=== PATIENT | female | born 1990 | race Caucasian/White ===

== ENCOUNTER 2023-08-14 17:02 | Outpatient (OUT) | payer OTHER, SELFPAY ==
--- NOTE | 2023-08-14 17:11 | US_ITS ---
[address] [address] Patient Name: EFRAIN CHURCHILL MRN: [id number] date: 1990 Sex: F Assigned Patient Location: US Current Patient Location: Accession/Order Number: [id number] Exam Date: 08/14/2023 17:16 Report Date: 08/15/2023 07:26 At the request of: ANALIA JOHNSON Procedure: US thyroid EXAMINATION: US thyroid HISTORY: MULTINODULAR GOITER E04.2 COMPARISON: 08/26/2022 TECHNIQUE: Sonographic images of the thyroid gland were obtained. FINDINGS: The right thyroid lobe measures 5.6 x 2.1 x 1.9 cm. Multiple focal nodules. The thyroid isthmus measures 2.3 mm. Single focal nodule The left thyroid lobe measures 4.8 x 1.0 x 1.7 cm. Multiple focal nodules. The 2 most suspicious nodules: Nodule 1: Right mid lobe. 1.7 x 1.4 x 1.6 cm. Mixed solid and cystic, hypoechoic, wide, smooth margins, no calcifications. TR 3 Nodule 2: Left thyroid lobe. 0.8 x 0 0.5 to 0.7 cm. Solid, hypoechoic, wide, smooth margins, no calcifications. TR 4 US/US thyroid IMPRESSION: Stable multinodular goiter TI-RADS: The [employer] TI-RADS committee's white paper recommendations for thyroid lesions classified as TR3 (mildly suspicious) are listed below: > 1.5 cm. Follow-up ultrasound in 1, 3, and 5 years. > 2.5 cm. FNA. J. Am Cornelius Radiol 2017;14:587-595. TI-RADS: The [employer] TI-RADS committee's white paper recommendations for thyroid lesions classified as TR4 (moderately suspicious) are listed below: > 1.0 cm. Follow-up ultrasound in 1, 2, 3, and 5 years. > 1.5 cm. FNA. [employer]. [employer]iol 2017;14:587-595. Electronically authenticated by: DREW REAL Date: 08/15/2023 07:26
== END 2023-08-14 17:03 | disposition home or self-care (01) ==
PROVIDERS: PCP Nurse Practitioner; Visit Provider Otolaryngology
DX: E04.2 Nontoxic multinodular goiter (principal)
CPT/HCPCS: 76536

== ENCOUNTER 2023-08-26 19:59 | Outpatient (REF) | payer OTHER, SELFPAY ==
[2023-08-31 16:07] LABS: Age Gdln ACOG Testing Note (.); HPV Aptima Negative (Negative); IGP, Aptima HPV, rfx 16/18,45 Note (.)
== END 2023-08-26 20:00 | disposition home or self-care (01) ==
LOC: LAB 19:59
PROVIDERS: PCP Nurse Practitioner; Visit Provider Physician Assistant
DX: Z01.419 Encounter for gynecological examination (general) (routine) without abnormal findings (principal)
CPT/HCPCS: 87624; G0145

== ENCOUNTER 2023-08-30 09:31 | Outpatient (OUT) | payer OTHER, SELFPAY ==
[2023-08-30 10:22] LABS: Basophils Percent Auto 0.7 % (0.2-2.0); Eosinophils Absolute Auto 0.3 10^3/uL (0.0-0.7); Hematocrit 39.2 % (36.0-48.0); Hemoglobin 13.1 g/dL (12.0-16.0); Immature Granulocytes Abs Auto 0.02 10^3/uL (0.00-0.03); Immature Granulocytes Pct Auto 0.4 % (0.0-0.5); Lymphocytes Absolute Auto 1.7 10^3/uL (1.2-3.8); Lymphocytes Percent Auto 31.1 % (20.5-60.0); Mean Corpuscular HGB Conc 33.4 g/dL (29.9-35.2); Mean Corpuscular Volume 92.9 fL (81.0-99.0); Mean Platelet Volume 9.4 fL (9.5-13.5); Monocytes Absolute Auto 0.4 10^3/uL (0.3-0.8); Monocytes Percent Auto 6.5 % (1.7-12.0); Neutrophils Absolute Auto 3.1 10^3/uL (1.4-6.5); Neutrophils Percent Auto 56.3 % (43.0-75.0); Platelet Count 239 10^3/uL (150-450); Red Blood Count 4.22 10^6/uL (4.20-5.40); White Blood Count 5.6 10^3/uL (4.0-11.0)
[2023-08-30 10:44] LABS: Estimated Average Glucose 82 mg/dL; Glycohemoglobin A1C 4.5 % (4.5-6.2)
[2023-08-30 11:02] LABS: Alanine Aminotransferase 24 U/L (14-59); Albumin Globulin Ratio 1.1; Albumin Level 3.8 g/dL (3.4-5.0); Alkaline Phosphatase 43 U/L (46-116); Anion Gap 13.5; Aspartate Amino Transferase 16 U/L (15-37); BUN Creatinine Ratio 19.2; Bilirubin Total 0.6 mg/dL (0.2-1.0); Calcium 9.2 mg/dL (8.5-10.1); Carbon Dioxide 24.7 mmol/L (21.0-32.0); Chloride 104 mmol/L (98-107); Chol HDL Ratio 2.5; Cholesterol 170 mg/dL (<=200); Estimated GFR (African America >60 (>=60); Estimated GFR (Non-African Ame >60 (>=60); Globulin 3.6 g/dL; Glucose 82 mg/dL (74-106); HDL Cholesterol 69 mg/dL (40-60); Potassium 4.2 mmol/L (3.5-5.1); Sodium 138 mmol/L (136-145); Thyroid Stimulating Hormone 0.912 uIU/mL (0.358-3.740); Total Protein 7.4 g/dL (6.4-8.2); Triglycerides 51 mg/dL (<=150); VLDL CHOLESTEROL 10.2 mg/dL
== END 2023-08-30 09:32 | disposition home or self-care (01) ==
LOC: LAB 09:32
PROVIDERS: PCP Nurse Practitioner; Visit Provider Physician Assistant
DX: Z01.419 Encounter for gynecological examination (general) (routine) without abnormal findings (principal)
CPT/HCPCS: 36415; 80053; 80061; 83036; 84443; 85025

== ENCOUNTER 2024-08-11 16:18 | Outpatient (OUT) | payer OTHER, SELFPAY ==
--- NOTE | 2024-08-11 16:20 | US_ITS ---
The [address] [address] Patient Name: EFRAIN CHURCHILL MRN: [id number] date: 1990 Sex: F Assigned Patient Location: US Current Patient Location: Accession/Order Number: [id number] Exam Date: 08/11/2024 16:26 Report Date: 08/12/2024 08:13 At the request of: ANALIA JOHNSON Procedure: US thyroid EXAMINATION: US thyroid HISTORY: MULTINODULAR GOITER E04.2 COMPARISON: 08/14/2023 TECHNIQUE: Sonographic images of the thyroid gland were obtained. FINDINGS: The right thyroid lobe is heterogeneous in echotexture measuring 5.7 x 2.0 x 2.3 cm. Multiple nodules with a single nodule over 1 cm. The thyroid isthmus measures 1.7 mm. Single subcentimeter nodule The left thyroid lobe is heterogeneous in echotexture measuring 4.6 x 1.1 x 1.6 cm. Multiple subcentimeter nodules. The most suspicious nodule: Right thyroid lobe. 1.9 x 1.6 x 1.7 cm. Mixed solid and cystic, hypoechoic, wide, smooth margins, punctate calcifications. TR 4 US/US thyroid IMPRESSION: Continued increase in size of a now 1.9 cm right thyroid TR 4 nodule. Consider fine-needle aspiration TI-RADS: The [employer] TI-RADS committee's white paper recommendations for thyroid lesions classified as TR4 (moderately suspicious) are listed below: > 1.0 cm. Follow-up ultrasound in 1, 2, 3, and 5 years. > 1.5 cm. FNA. J. [employer] Radiol 2017;14:587-595. Electronically authenticated by: DREW REAL Date: 08/12/2024 08:13
--- OUTSIDE RECORDS SUMMARY | 2024-08-11 16:25 | XMS_ITS | CCD ---
Author Organization [facility] ion [facility] Care Team Providers Care Lab Support Tech Name Role Phone ELIZABETH, DR HELMS Admitting Unavailable ELIZABETH, DR HELMS Attending Unavailable HOUSE, DR CASTILLO Primary Care Unavailable ELIZABETH, DR HELMS Consulting Unavailable Zieber, DR Ann Consulting Unavailable JOHNSONVILLE, DR CASTILLO Admitting Unavailable JOHNSONVILLE, DR CASTILLO Attending Unavailable JOHNSONVILLE, DR CASTILLO Primary Care Unavailable JOHNSONVILLE, DR CASTILLO Consulting Unavailable Allergies Allergy Classification Reported Allergen(s) Allergy Type Date of Onset Reaction(s) Facility (1 source) Penicillin Drug Allergy The [facility] Repository Problems Problem Classification Problem Date Documented Da te Episodic/Chronic Malaise and fatigue (1 source) Other fatigue; Translations: [OTHER FATIGUE] Onset: 10-02-2022 Episodic Syncope (4 sources) Syncope and collapse; Translations: [SYNCOPE AND COLLAPSE] Onset: 09-27-2022 Episodic Thyroid disorders (4 sources) Nontoxic multinodular goiter; Translations: [NONTOXIC MULTINODULAR GOITER] Onset: 08-26-2022 Chronic Results Test Name Value Interpretation Reference Range Facil ity CBC AUTO DIFFon 09-27-2022 BASO # 0.0 103/ul Normal 0.0-0.1 [facility] Comment on above: Performed By: #### C BC #### [facility] [address] [place] [address] Dr. Caden Abdi Basophils/100 WBC (Bld) 0.5 % Normal 0.2-2.0 [facility] Comment on above: Performed By: #### C BC #### [facility] [address] [place] [address] Dr. Caden Abdi EO # 0.2 103/ul Normal 0.0-0.7 [facility] Comment on above: Performed By: #### C BC #### [facility] [address] [place] [address] Dr. Caden Abdi Eosinophils/100 WBC (Bld) 2.7 % Normal 0.9-7.0 [facility] Comment on above: Performed By: #### C BC #### [facility] [address] [place] [address] Dr. Caden Abdi Erythrocyte distribution width (RBC) [Ratio] 12.3 % Normal 11.0-15.0 [facility] Comment on above: Performed By: #### C BC #### [facility] [address] [place] [address] Dr. Caden Abdi Hematocrit (Bld) [Volume fraction] 35.0 % Critically low 36.0-48.0 [facility] Comment on above: Performed By: #### C BC #### [facility] [address] [place] [address] Dr. Caden Abdi Hemoglobin (Bld) [Mass/Vol] 11.8 g/dL Critically low 12.0-16.0 [facility] Comment on above: Performed By: #### C BC #### [facility] [address] [place] [address] Dr. Caden Abdi IG # 0.01 10e3/ul Normal 0.00-0.03 [facility] Comment on above: Performed By: #### C BC #### [facility] [address] [place] [address] Dr. Caden Abdi IG % 0.2 % Normal 0.0-0.5 [facility] Comment on above: Performed By: #### C BC #### [facility] [address] [place] [address] Dr. Caden Abdi LYMPH # 2.2 103/ul Normal 1.2-3.8 [facility] Comment on above: Performed By: #### C BC #### [facility] [address] [place] [address] Dr. Caden Abdi Lymphocytes/100 WBC (Bld) 38.4 % Normal 20.5-60.0 [facility] Comment on above: Performed By: #### C BC #### [facility] [address] [place] [address] Dr. Caden Abdi MANUAL DIFF REQ NO Normal [facility] Comment on above: Performed By: #### C BC #### [facility] [address] [place] [address] Dr. Caden Abdi MCH (RBC) [Entitic mass] 30.3 pg Normal 26.7-34.0 [facility] Comment on above: Performed By: #### C BC #### [facility] [address] [place] [address] Dr. Caden Abdi MCHC (RBC) [Mass/Vol] 33.7 g/dL Normal 29.9-35.2 [facility] Comment on above: Performed By: #### C BC #### [facility] [address] [place] [address] Dr. Caden Abdi MCV (RBC) [Entitic vol] 90.0 fL Normal 81.0-99.0 [facility] Comment on above: Performed By: #### C BC #### [facility] [address] [place] [address] Dr. Caden Abdi MONO # 0.4 103/ul Normal 0.3-0.8 [facility] Comment on above: Performed By: #### C BC #### [facility] [address] [place] [address] Dr. Caden Abdi Monocytes/100 WBC (Bld) 6.2 % Normal 1.7-12.0 [facility] Comment on above: Performed By: #### C BC #### [facility] [address] [place] [address] Dr. Caden Abdi NEUT # 2.9 103/ul Normal 1.4-6.5 [facility] Comment on above: Performed By: #### C BC #### [facility] [address] [place] [address] Dr. Caden Abdi Neutrophils/100 WBC (Bld) 52.0 % Normal 43.0-75.0 [facility] Comment on above: Performed By: #### C BC #### [facility] [address] [place] [address] Dr. Caden Abdi Platelet mean volume (Bld) [Entitic vol] 9.4 fL Critically low 9.5-13.5 [facility] Comment on above: Performed By: #### C BC #### [facility] [address] [place] [address] Dr. Caden Abdi PLT 240 103/ul Normal 150-450 [facility] Comment on above: Performed By: #### C BC #### [facility] [address] [address] [address] Caden Abdi RBC 3.89 106/ul Critically low 4.20-5.40 [facility] Comment on above: Performed By: #### C BC #### [facility] [address] [address] [address] Caden Abdi WBC 5.6 103/ul Normal 4.0-11.0 [facility] Comment on above: Performed By: #### C BC #### [facility] [address] [place] [address] Dr. Caden Abdi PROF 14(COMP METB)on 09-27- 022 Albumin [Mass/Vol] 4.0 g/dL Normal 3.4-5.0 [facility] Comment on above: Performed By: #### T 4, CMP, TSH #### [facility] [address] [place] [address] Dr. Caden Abdi Albumin/Globulin [Mass ratio] 1.3 {ratio} Normal [facility] Comment on above: Performed By: #### T 4, CMP, TSH #### [facility] [address] [place] [address] Dr. Caden Abdi ALP [Catalytic activity/Vol] 38 U/L Critically low 46-116 [facility] Comment on above: Performed By: #### T 4, CMP, TSH #### [facility] [address] [place] [address] Dr. Caden Abdi ALT [Catalytic activity/Vol] 21 U/L Normal 14-59 [facility] Comment on above: Performed By: #### T 4, CMP, TSH #### [facility] [address] [place] [address] Dr. Caden Abdi Anion gap [Moles/Vol] 8.6 mmol/L Normal [facility] Comment on above: Performed By: #### T 4, CMP, TSH #### [facility] [address] [place] [address] Dr. Caden Abdi AST [Catalytic activity/Vol] 13 U/L Critically low 15-37 [facility] Comment on above: Performed By: #### T 4, CMP, TSH #### [facility] [address] [place] [address] Dr. Caden Abdi Bilirubin [Mass/Vol] 0.4 mg/dL Normal 0.2-1.0 [facility] Comment on above: Performed By: #### T 4, CMP, TSH #### [facility] [address] [place] [address] Dr. Caden Abdi Calcium [Mass/Vol] 9.3 mg/dL Normal 8.5-10.1 [facility] Comment on above: Performed By: #### T 4, CMP, TSH #### [facility] [address] [place] [address] Dr. Caden Abdi Chloride [Moles/Vol] 104 mmol/L Normal 98-107 [facility] Comment on above: Performed By: #### T 4, CMP, TSH #### [facility] [address] [place] [address] Dr. Caden Abdi CO2 [Moles/Vol] 30.4 mmol/L Normal 21.0-32.0 [facility] Comment on above: Performed By: #### T 4, CMP, TSH #### [facility] [address] [place] [address] Dr. Caden Abdi Creatinine [Mass/Vol] 0.71 mg/dL Normal 0.55-1.02 [facility] Comment on above: Performed By: #### T 4, CMP, TSH #### [facility] [address] [place] [address] Dr. Caden Abdi EGFR-AF M[place]ICAN >60 Normal >=60 [facility] Comment on above: Performed By: #### T 4, CMP, TSH #### [facility] [address] [place], [place] [address] Dr. Caden Abdi EGFR-NON AF M[place]ICAN >60 Normal >=60 [facility] Comment on above: Performed By: #### T 4, CMP, TSH #### [facility] [address] [place] [address] Dr. Caden Abdi Globulin (S) [Mass/Vol] 3.2 g/dL Normal [facility] Comment on above: Performed By: #### T 4, CMP, TSH #### [facility] [address] [place] [address] Dr. Caden Abdi Glucose [Mass/Vol] 77 mg/dL Normal 74-106 [facility] Comment on above: Performed By: #### T 4, CMP, TSH #### [facility] [address] [place] [address] Dr. Caden Abdi Potassium [Moles/Vol] 4.0 mmol/L Normal 3.5-5.1 [facility] Comment on above: Performed By: #### T 4, CMP, TSH #### [facility] [address] [place] [address] Dr. Caden Abdi Protein [Mass/Vol] 7.2 g/dL Normal 6.4-8.2 [facility] Comment on above: Performed By: #### T 4, CMP, TSH #### [facility] [address] [place] [address] Dr. Caden Abdi Sodium [Moles/Vol] 139 mmol/L Normal 136-145 [facility] Comment on above: Performed By: #### T 4, CMP, TSH #### [facility] [address] [place] [address] Dr. Caden Abdi Urea nitrogen [Mass/Vol] 19.0 mg/dL Critically high 7.0-18.0 [facility] Comment on above: Performed By: #### T 4, CMP, TSH #### [facility] [address] [place] [address] Dr. Caden Abdi Urea nitrogen/Creatinine [Mass ratio] 26.8 mg/mg Normal [facility] Comment on above: Performed By: #### T 4, CMP, TSH #### [facility] [address], [place] [address] Dr. Caden Abdi T4on 09-27-2022 T4 [Mass/Vol] 6.80 ug/dL Normal 4.80-13.90 [facility] Comment on above: Performed By: #### T 4, CMP, TSH #### [facility] [address], [place] [address] Dr. Caden Abdi TSHon 09-27-2022 TSH 1.303 uIU/mL Normal 0.358-3.740 [facility] Comment on above: Performed By: #### T 4, CMP, TSH #### [facility] [address], [place] [address] Dr. Caden Abdi US THYROIDon 08-27-2022 US THYROID EXAMINATION: US THYROID HISTORY: Non-toxic multinodular goiter COMPARISON: Ultrasound thyroid 08/16/2021, 04/24/2021 FINDINGS: RIGHT LOBE: The right thyroid lobe 1.6 x 1.4 x 1.3 cm TR 3 nodule which appears grossly stable allowing for slight differences in technique. Stable 1.0 cm TR 3 nodule within inferior pole. Lobe size: 5.4 x 1.8 x 1.9 cm LEFT LOBE: Several similar appearing TR 4 nodules within left lobe; largest 3 are 8 mm, 8 mm, and 5 mm in maximum diameter respectively. Lobe size: 4.9 x 1.0 x 1.6 cm ISTHMUS: Stable 0.5 cm TR 3 nodule within right isthmus. Thickness: 2.5 mm IMPRESSION: 1. Stable multinodular thyroid gland. Follow-up imaging in one year is recommended. TR4 (moderately suspicious): If > 1.0 cm Follow-up ultrasound in 1, 2, 3, and 5 years. If > 1.5 cm fine needle aspiration (FNA). TR3 (mildly suspicious): > 1.5 cm, follow-up ultrasound in 1, 3, and 5 years. > 2.5 cm, fine needle aspiration. Electronically authenticated by: KEILA DICKINSON Date: 2022-08-27 13:08 Normal [facility] Coding Summary.on 10-17-2020 Coding Summary. CODING DATE: 10/17/2020 FINAL [place] STATUS: Home (Routine DC) PAYOR: [place] ADMIT DX: REASON FOR VISIT DX: Z20.828 Contact with and (suspected) exposure to other viral communicable diseases FINAL DX: PRINCIPAL: Z20.828 Contact with and (suspected) exposure to other viral communicable diseases SECONDARY: PYMT PROC APC STAT DESCRIPTION DOCTOR NAME DATE NOTE: The code number assigned matches the documented diagnosis and / or procedure in the patient's chart. However, the narrative phrase printed from the coding software may appear abbreviated, or result in slightly different terminology. Coded By: Myah Llanos CphT Date Saved: 10/17/2020 05:46 pm Normal [facility] SARS-CoV-2, NAAon 10-06-2020 SARS CORONAVIRUS 2 RNA:PRTHR:PT:RESPIR ATORY:ORD:PROBE.AMP .TAR Not Detected Not Detected [facility] Comment on above: Result Comment: This nucleic acid amplification test was developed and its performance characteristics determined by [employer]. Nucleic acid amplification tests include PCR and TMA. This test has not been FDA cleared or approved. This test has been authorized by FDA under an Emergency Use Authorization (EUA). This test is only authorized for the duration of time the declaration that circumstances exist justifying the authorization of the emergency use of in vitro diagnostic tests for detection of SARS-CoV-2 virus and/or diagnosis of COVID-19 infection under section 564(b)(1) of the Act, 21 U.S.C. 360bbb-3(b) (1), unless the authorization is terminated or revoked sooner. When diagnostic testing is negative, the possibility of a false negative result should be considered in the context of a patient's recent exposures and the presence of clinical signs and symptoms consistent with COVID-19. An individual without symptoms of COVID-19 and who is not shedding SARS-CoV-2 virus would expect to have a negative (not detected) result in this assay. Performed at: [facility] [address] [facility] [place] [place] [id number] MD Og Butcher Performed By: #### S ARS-CoV-2, CARLOS #### [facility] [address] [place] [address] Physician Orderon 10-02-2020 Physician Order [id number]# 1.00CD:127 Normal [facility] Encounters Encounter Date Encounter Type Care Provider Facility Start: 09-27-2022 End: 09-28-[address] ANNA ESPAÑA Facility:[facility] Start: 08-26-2022 End: 08-27-[address] ANALIA JOHNSON Facility:[facility] Payers Date Payer Category Payer Unknown [id number] 1990 Unknown [id number] 1958 Unknown [id number] Summary Purpose Family History No Family History Records FoundNo Family History Records Found Advance Directives No Advanced Directives Records FoundNo Advanced Directives Records Found Additional Source Comments INFORMATION SOURCE (unrecogn ized section and content) DATE CREATED AUTHOR 10/18/2020 [facility] DATE CREATED AUTHOR AUTHOR'S ORGANIZ ATION 10/02/2022 [facility] FOR RECORDS PERTAINING TO PATIENTS WHO ARE OR HAVE BEEN ENROLLED IN A CHEMICAL DEPENDENCY/SUBSTANCEABUSE PROGRAM, SOME INFORMATION MAY BE OMITTED. This clinical summary was aggregated from multiple sources. Caution should be exercised in using it in the provision of clinical care. This summary normalizes information from multiple sources, and as a consequence, information in this document may materially change the coding, format and clinical context of patient data. In addition, data may be omitted in some cases. CLINICAL DECISIONS SHOULD BE BASED ON THE PRIMARY CLINICAL RECORDS. [facility] [employer] provides no warranty or guarantee of the accuracy or completeness of information in this document.
== END 2024-08-11 16:19 | disposition home or self-care (01) ==
LOC: US 16:18
PROVIDERS: PCP Nurse Practitioner; Visit Provider Otolaryngology
DX: E04.2 Nontoxic multinodular goiter (principal)
CPT/HCPCS: 76536

== ENCOUNTER 2024-09-06 21:13 | Outpatient (REF) | payer OTHER, SELFPAY ==
--- OUTSIDE RECORDS SUMMARY | 2024-09-06 21:16 | XMS_ITS | CCD ---
Author Organization [facility] Care Team Providers Care Senior Management Consultant Name Role Phone ELIZABETH, DR HELMS Admitting Unavailable PEYTONMIMimi, DR HELMS Attending Unavailable SAGIN[place], DR CASTILLO Primary Care [facility] HELMS Consulting Unavailable Kimi, DR Ann Consulting Unavailable SAGIN[place], DR CASTILLO Admitting Unavailable HOUSE, DR CASTILLO Attending Unavailable HOUSE, DR CASTILLO Primary Care Unavailable HOUSE, DR CASTILLO Consulting Unavailable Kade [employer], Idania Unavailable Jose Antonio Rodriguez MD Primary Care Provider Kade [employer], Idania Unavailable IDANIA BRAUN Attending Unavailable TAMERA GUTIERREZ Attending Unavailable Allergies Allergy Classification Reported Allergen(s) Allergy Type Date of Onset Reaction(s) Facility (1 source) Penicillin Drug Allergy [facility] Repository (6 sources) Penicillin G Drug Allergy 3 Rash [facility] (6 sources) Other Propensity to adverse reactions 3 Unknown [facility] Medications Current Medications Medication Drug Class(es) Dates Sig (Normalized) Sig (Original) benzonatate 200 mg oral capsule (2 sources) Non-narcotic Antitussive Start: 08-18-2024 End: 08-25-2024 take 1 capsule by mouth three times daily as needed for cough benzonatate (Tessalon) 200 MG capsule Indications: Acute non-recurrent maxillary sinusitis Take 1 capsule (200 mg) by mouth 3 (three) times a day as needed for cough for up to 7 days Take with full glass of water. Do not crush or chew. 21 capsule 08/18/2024 08/25/2024 Active doxycycline hyclate 100 mg oral tablet (2 sources) Tetracycline-class Drug Start: 08-18-2024 End: 10-19-2024 doxycycline (Vibra-Tabs) 100 MG tablet Indications: Acute non-recurrent maxillary sinusitis Take 1 tablet (100 mg) by mouth in the morning and 1 tablet (100 mg) before bedtime. Do all this for 10 days. Take with a full glass of water and do not lie down for at least 30 minutes after.. 20 tablet 08/18/2024 08/28/2024 Active ferrous fumarate-vitamin C ER ([place] 65-25) (6 sources) take 1 tablet by mouth at mealtime ferrous fumarate-vitamin C ER ([place] 65-25) Take 1 tablet by mouth in the morning. Take with meals. Do not crush, chew, or split. . Active fexofenadine hydrochloride 180 mg oral tablet (5 sources) Histamine-1 Receptor Antagonist take 1 tablet by mouth once daily fexofenadine (Kristin Allergy) 180 MG tablet Take 180 mg by mouth Daily Active ibuprofen 800 mg oral tablet (8 sources) Nonsteroidal Anti-inflammatory Drug Start: 08-18-2024 End: 09-17-2024 take 1 tablet by mouth every eight hours for pain ibuprofen 800 MG tablet Indications: Lumbar back pain Take 1 tablet (800 mg) by mouth every 8 (eight) hours if needed for moderate pain 90 tablet 1 08/18/2024 09/17/2024 Active Start: 07-28-2023 End: 08-18-2024 take 1 tablet by mouth every six hours as needed for pain ibuprofen 800 MG tablet Take 800 mg by mouth every 6 (six) hours if needed for mild pain. 07/28/2023 08/18/2024 Discontinued (Reorder) Misc Natural Products (FIBER 7 PO) (6 sources) take 1 dose by mouth in the morning Misc Natural Products (FIBER 7 PO) Take 1 each by mouth in the morning. Active Multiple Vitamins-Minerals (WOMENS DAILY FORMULA PO) (6 sources) take 1 dose by mouth once daily in the morning Multiple Vitamins-Minerals (WOMENS DAILY FORMULA PO) Take 1 each by mouth in the morning. Active Completed/Discontinued Medications Medication Drug Class(es) Dates Sig (Normalized) Sig (Original) cetirizine hydrochloride 10 mg oral tablet (3 sources) Histamine-1 Receptor Antagonist Start: 03-02-2024 End: 08-18-2024 take 1 tablet by mouth once daily cetirizine (ZyrTEC) 10 MG tablet Indications: Environmental and seasonal allergies Take 1 tablet (10 mg) by mouth Daily 30 tablet 3 03/02/2024 08/18/2024 Discontinued (Ineffective) triamcinolone acetonide 0.055 mg/actuat metered dose nasal spray (3 sources) Corticosteroid Start: 03-02-2024 End: 03-02-2025 take 2 spray(s) nasal route once daily triamcinolone (Nasacort) 55 MCG/ACT nasal inhaler Indications: Environmental and seasonal allergies Administer 2 sprays into each nostril Daily 16.5 g 3 03/02/2024 08/18/2024 Discontinued Problems Problem Classification Problem Date Documented Da te Episodic/Chronic Malaise and fatigue (1 source) Other fatigue; Translations: [OTHER FATIGUE] Onset: 10-02-2022 Episodic Other upper respiratory disease (6 sources) Allergic disposition; Translations: [Other allergic rhinitis] Onset: 03-02-2024 03-02-2024 Chronic Other upper respiratory infections (13 sources) Acute upper respiratory infection; Translations: [Acute upper respiratory infection, unspecified] Onset: 08-27-2023 08-27-2023 Episodic Spondylosis; intervertebral disc disorders; other back problems (7 sources) Low back pain; Translations: [Lumbar back pain] Onset: 08-18-2024 08-18-2024 Episodic Syncope (4 sources) Syncope and collapse; Translations: [SYNCOPE AND COLLAPSE] Onset: 09-27-2022 Episodic Thyroid disorders (10 sources) Nontoxic multinodular goiter; Translations: [Multinodular goiter] Onset: 08-26-2022 Chronic Results Test Name Value Interpretation Reference Range Facil ity Cytology Cervical or vaginal smear or scraping [facility]on [facility]23 [facility] AUTO DIFFon 09-27-2022 BASO # 0.0 103/ul Normal 0.0-0.1 [facility] Comment on above: Performed By: #### C BC #### [facility] [address], [place] [address] Dr. Caden Abdi Basophils/100 WBC (Bld) 0.5 % Normal 0.2-2.0 [facility] Comment on above: Performed By: #### C BC #### [facility] [address] [place] [address] Dr. Caden Abdi EO # 0.2 103/ul Normal 0.0-0.7 [facility] Comment on above: Performed By: #### C BC #### [facility] [address] [place] [address] Dr. Caden Abdi Eosinophils/100 WBC (Bld) 2.7 % Normal 0.9-7.0 [facility] Comment on above: Performed By: #### C BC #### [facility] [address] [place] [address] Dr. Caden Abdi Erythrocyte distribution width (RBC) [Ratio] 12.3 % Normal 11.0-15.0 [facility] Comment on above: Performed By: #### C BC #### [facility] [address] [place] [address] Dr. Caden Abdi Hematocrit (Bld) [Volume fraction] 35.0 % Critically low 36.0-48.0 [facility] Comment on above: Performed By: #### C BC #### [facility] [address] [place] [address] Dr. Caden Abdi Hemoglobin (Bld) [Mass/Vol] 11.8 g/dL Critically low 12.0-16.0 [facility] Comment on above: Performed By: #### C BC #### [facility] [address] [place] [address] Dr. Caden Abdi IG # 0.01 10e3/ul Normal 0.00-0.03 [facility] Comment on above: Performed By: #### C BC #### [facility] [address] [place] [address] Dr. Caden Abdi IG % 0.2 % Normal 0.0-0.5 [facility] Comment on above: Performed By: #### C BC #### [facility] [address] [place] [address] Dr. Caden Abdi LYMPH # 2.2 103/ul Normal 1.2-3.8 [facility] Comment on above: Performed By: #### C BC #### [facility] [address] [place] [address] Dr. Caden Abdi Lymphocytes/100 WBC (Bld) 38.4 % Normal 20.5-60.0 [facility] Comment on above: Performed By: #### C BC #### [facility] [address] [place] [address] Dr. Caden Abdi MANUAL DIFF REQ NO Normal [facility] Comment on above: Performed By: #### C BC #### [facility] [address] [place] [address] Dr. Caden Abdi MCH (RBC) [Entitic mass] 30.3 pg Normal 26.7-34.0 [facility] Comment on above: Performed By: #### C BC #### [facility] [address] [place] [address] Dr. Caden Abdi MCHC (RBC) [Mass/Vol] 33.7 g/dL Normal 29.9-35.2 [facility] Comment on above: Performed By: #### C BC #### [facility] [address] [place] [address] Dr. Caden Abdi MCV (RBC) [Entitic vol] 90.0 fL Normal 81.0-99.0 [facility] Comment on above: Performed By: #### C BC #### [facility] [address] [place] [address] Dr. Caden Abdi MONO # 0.4 103/ul Normal 0.3-0.8 [facility] Comment on above: Performed By: #### C BC #### [facility] [address] [place] [address] Dr. Caden Abdi Monocytes/100 WBC (Bld) 6.2 % Normal 1.7-12.0 [facility] Comment on above: Performed By: #### C BC #### [facility] [address] [place] [address] Dr. Caden Abdi NEUT # 2.9 103/ul Normal 1.4-6.5 [facility] Comment on above: Performed By: #### C BC #### [facility] [address] [place] [address] Dr. Caden Abdi Neutrophils/100 WBC (Bld) 52.0 % Normal 43.0-75.0 [facility] Comment on above: Performed By: #### C BC #### [facility] [address] [place] [address] Dr. Caden Abdi Platelet mean volume (Bld) [Entitic vol] 9.4 fL Critically low 9.5-13.5 [facility] Comment on above: Performed By: #### C BC #### [facility] [address] [place] [address] Dr. Caden Abdi PLT 240 103/ul Normal 150-450 [facility] Comment on above: Performed By: #### C BC #### [facility] [address] [place] [address] Dr. Caden Adbi RBC 3.89 106/ul Critically low 4.20-5.40 [facility] Comment on above: Performed By: #### C BC #### [facility] [address] [place] [address] Dr. Caden Abdi WBC 5.6 103/ul Normal 4.0-11.0 [facility] Comment on above: Performed By: #### C BC #### [facility] [address] [place] [address] Dr. Caden Abdi PROF 14(COMP METB)on 022 Albumin [Mass/Vol] 4.0 g/dL Normal 3.4-5.0 [facility] Comment on above: Performed By: #### T 4, CMP, TSH #### [facility] [address] [place] [address] Dr. Caden Abdi Albumin/Globulin [Mass ratio] 1.3 {ratio} Normal [facility] Comment on above: Performed By: #### T 4, CMP, TSH #### [facility] [address] [place] [address] Dr. Caden Abdi ALP [Catalytic activity/Vol] 38 U/L Critically low 46-116 [facility] Comment on above: Performed By: #### T 4, CMP, TSH #### [facility] [address] [place] [address] Dr. Caden Abdi ALT [Catalytic activity/Vol] 21 U/L Normal 14-59 [facility] Comment on above: Performed By: #### T 4, CMP, TSH #### [facility] [address] [place] [address] Dr. Caden Abdi Anion gap [Moles/Vol] 8.6 mmol/L Normal [facility] Comment on above: Performed By: #### T 4, CMP, TSH #### [facility] [address] [place] [address] Dr. Caden Abdi AST [Catalytic activity/Vol] 13 U/L Critically low 15-37 [facility] Comment on above: Performed By: #### T 4, CMP, TSH #### [facility] [address] [place] [address] Dr. Caden Abdi Bilirubin [Mass/Vol] 0.4 mg/dL Normal 0.2-1.0 [facility] Comment on above: Performed By: #### T 4, CMP, TSH #### [facility] [address] [place] [address] Dr. Caden Abdi Calcium [Mass/Vol] 9.3 mg/dL Normal 8.5-10.1 [facility] Comment on above: Performed By: #### T 4, CMP, TSH #### [facility] [address] [place] [address] Dr. Caden Abdi Chloride [Moles/Vol] 104 mmol/L Normal 98-107 [facility] Comment on above: Performed By: #### T 4, CMP, TSH #### [facility] [address] [place] [address] Dr. Caden Abdi CO2 [Moles/Vol] 30.4 mmol/L Normal 21.0-32.0 [facility] Comment on above: Performed By: #### T 4, CMP, TSH #### [facility] [address] [place] [address] Dr. Caden Abdi Creatinine [Mass/Vol] 0.71 mg/dL Normal 0.55-1.02 [facility] Comment on above: Performed By: #### T 4, CMP, TSH #### [facility] [address] [place] [address] [address] Caden Abdi EGFR-AF [place]IZ[place] >60 Normal >=60 [facility] Comment on above: Performed By: #### T 4, CMP, TSH #### [facility] [address] [place] [address] [address] Caden Abdi EGFR-NON AF [place]IZ[place] >60 Normal >=60 [facility] Comment on above: Performed By: #### T 4, CMP, TSH #### [facility] [address] [place] [address] [address] Caden Abdi Globulin (S) [Mass/Vol] 3.2 g/dL Normal [facility] Comment on above: Performed By: #### T 4, CMP, TSH #### [facility] [address] [place] [address] Dr. Caden Abdi Glucose [Mass/Vol] 77 mg/dL Normal 74-106 [facility] Comment on above: Performed By: #### T 4, CMP, TSH #### [facility] [address] [place] [address] [address] Caden Abdi Potassium [Moles/Vol] 4.0 mmol/L Normal 3.5-5.1 [facility] Comment on above: Performed By: #### T 4, CMP, TSH #### [facility] [address] [place] [address] Dr. Caden Abdi Protein [Mass/Vol] 7.2 g/dL Normal 6.4-8.2 [facility] Comment on above: Performed By: #### T 4, CMP, TSH #### [facility] [address] [place] [address] [address] Caden Abdi Sodium [Moles/Vol] 139 mmol/L Normal 136-145 [facility] Comment on above: Performed By: #### T 4, CMP, TSH #### [facility] [address] [place] [address] [address] Caden Abdi Urea nitrogen [Mass/Vol] 19.0 mg/dL Critically high 7.0-18.0 [facility] Comment on above: Performed By: #### T 4, CMP, TSH #### [facility] [address] [place], [place] [address] Dr. Caden Abdi Urea nitrogen/Creatinine [Mass ratio] 26.8 mg/mg Normal [facility] Comment on above: Performed By: #### T 4, CMP, TSH #### [facility] [address] [place] [address] [address] Caden Abdi T4on 09-27-2022 T4 [Mass/Vol] 6.80 ug/dL Normal 4.80-13.90 [facility] Comment on above: Performed By: #### T 4, CMP, TSH #### [facility] [address] [place] [address] [address] Caden Abdi TSHon 09-27-2022 TSH 1.303 uIU/mL Normal 0.358-3.740 [facility] Comment on above: Performed By: #### T 4, CMP, TSH #### [facility] [address] [place] [address] [address] Caden Abdi US THYROIDon 08-27-2022 US [...] by: KEILA DICKINSON Date: 2022-08-27 13:[address] [facility] Coding Summary.on 10-17-2020 Coding Summary. CODING DATE: 10/17/2020 [facility] STATUS: Home (Routine DC) PAYOR: [facility] [place] ADMIT DX: REASON FOR VISIT DX: [phone] [...] CphT Date Saved: 10/17/2020 05:46 pm Normal [facility] SARS-CoV-2, NAAon 10-06-2020 SARS CORONAVIRUS 2 RNA:PRTHR:PT:RESPIR ATORY:ORD:PROBE.AMP .TAR Not Detected Not Detected [facility] Comment on above: Result Comment: This nucleic acid amplification test was developed and its performance characteristics determined by [employer]. Nucleic acid amplification tests include PCR and [...] detected) result in this assay. Performed at: [facility] [address] [facility] [place] [id number] MD gO Butcher Performed By: #### S ARS-CoV-2, CARLOS #### [facility] [address] [place] [address] Physician Orderon 10-02-2020 Physician Order [id number] 4#1.00CD:127 Normal [facility] Vital Signs Date Time Vital Sign Value Performing Clinician Vicky santiago 09-06-2024 09:25-0400 Body mass index (BMI) [Ratio] 24.02 kg/m2 Tamera VALENCIA Work Phone: [facility] 09-06-2024 09:25-0400 Body weight 71.67 kg Tamera VALENCIA Work Phone: [facility] 09-06-2024 09:25-0400 Diastolic blood pressure 70 mm[Hg] Tamera VALENCIA Work Phone: [facility] 09-06-2024 09:25-0400 Systolic blood pressure 108 mm[Hg] Tamera Gutierrez PA Work Phone: [facility] 08-18-2024 16:05-0400 Body height 172.7 cm Idania Kade [employer] Work Phone: [facility] 08-18-2024 16:05-0400 Body mass index (BMI) [Ratio] 23.93 kg/m2 Idania Kade [employer] Work Phone: [facility] 08-18-2024 16:05-0400 Body temperature 98.1 [degF] Idania Virajz [employer] Work Phone: [facility] 08-18-2024 16:05-0400 Body weight 71.4 kg Idania Kade [employer] Work Phone: [facility] 08-18-2024 16:05-0400 Diastolic blood pressure 82 mm[Hg] Idania Virajz [employer] Work Phone: [facility] 08-18-2024 16:05-0400 Heart rate 62 /min Idania Shultzholz [employer] Work Phone: [facility] 08-18-2024 16:05-0400 Respiratory rate 18 /min Idania Kade [employer] Work Phone: [facility] 08-18-2024 16:05-0400 SaO2% (BldA) [Mass fraction] 99 % Idania Kade [employer] Work Phone: [facility] 08-18-2024 16:05-0400 Systolic blood pressure 110 mm[Hg] Idania Kade [employer] Work Phone: [facility] Healthcare Encounters Encounter Date Encounter Type Care Provider Facility Start: 09-06-2024 End: 09-06-2024 Bamboo flowsheet Tamera VALENCIA Work Phone: [facility] Start: 09-06-2024 End: 09-06-2024 Bamboo flowsheet Tamera VALENCIA Work Phone: [facility] Start: 09-06-2024 End: 09-06-2024 Patient encounter procedure Tamera VALENCIA Work Phone: [facility] Work Phone: Start: 09-06-2024 End: 09-06-2024 Periodic preventive med est patient 18-39 yrs Tamera VALENCIA Work Phone: [facility] Comment on above: Well woman exam with routine gynecological exam Start: 09-06-2024 End: 09-06-2024 ambulatory TAMERA GUTIERREZ Not Available Start: 08-18-2024 End: 08-18-2024 ambulatory IDANIA BRAUN Not Available Start: 08-18-2024 End: 08-18-2024 Office outpatient visit 15 minutes Idania Kade [employer] Work Phone: [facility] Comment on above: Acute non-recurrent maxillary sinusitis (Primary Dx); Lumbar back pain Start: 08-18-2024 End: 08-18-2024 Bamboo flowsheet Idania Braun [employer] Work Phone: [facility] Start: 08-18-2024 End: 08-18-2024 Bamboo flowsheet Idania Braun [employer] Work Phone: [facility] Start: 09-27-2022 End: 09-28-[address] HOWARD ESPAÑA Facility:[facility]1 Start: 08-26-2022 End: 08-27-[address] SANIYA JOHNSON Facility:[facility] Procedures Date Procedure Procedure Detail Performing Clinician Start: 08-26-2023 Microscopic observat ion [Identifier] in Cervix by Cyto stain Tamera VALENCIA Work Phone: Start: 08-26-2023 Cytp cerv/vag auto t hin layer prep mnl screen Tamera VALENCIA Work Phone: Plan of Treatment Date Care Activity Detail Author Start: 08-26-2028 Screening for malign ant neoplasm of cervix [facility] Start: 09-12-2025 End: 09-12-2025 Patient encounter procedure 09/12/2025 10:00 AM EST Office Visit [facility] [address] [place] [address] Tamera Gutierrez PA [address] [place] [address] [facility] Start: 09-22-2024 End: 09-22-2024 Patient encounter procedure 09/22/2024 2:30 PM EST Procedure Visit [facility] [address] [place] [address] Marty Armstrong DO [address] [place], [place] [id number] [facility] Start: 09-07-2024 End: 09-07-2024 Patient encounter procedure 09/07/2024 1:30 PM EDT Office Visit [facility] [address] [facility] [address] [place] [id number] Saniya Johnson MD [address] [facility] [address] [place] [address] [facility] Start: 09-06-2024 End: 09-06-2024 Patient encounter procedure [facility] Comment on above: Arrived Start: 07-11-2024 Influenza vaccination Influenza Vacc ine (#1) [facility] Start: 2021 Screening for malign ant neoplasm of cervix [facility] Start: 2012 Screening for malign ant neoplasm of cervix Pap Smear [facility] Cytology Cervical or vaginal smear or scraping study Pap Smear Pathology and Cytology Routine Well woman exam with routine gynecological exam Ordered: 09/06/2024 [facility] Work Phone: Comment on above: Ordered: 09/06/2024 Human papilloma viru s DNA [Presence] in Unspecified specimen by Probe with amplification HPV DNA probe, amplified Microbiology Routine Well woman exam with routine gynecological exam Ordered: 09/06/2024 [facility] Comment on above: Ordered: 09/06/2024 Immunizations Immunization Date Immunization Notes Care Provider Fa cility 08-06-2023 influenza, injectabl e, quadrivalent, preservative free Idania Aichholz [employer] Work Phone: [facility] 08-06-2023 influenza virus vacc ine, unspecified formulation Idania Aichholz [employer] Work Phone: [facility] 09-13-2022 influenza, injectabl e, quadrivalent, preservative free Idania Aichholz [employer] Work Phone: [facility] 09-02-2020 influenza, injectabl e, quadrivalent, preservative free Idania Aichholz [employer] Work Phone: [facility] Payers Date Payer Category Payer Private Health Insurance [employer] Member Subscriber Plan / Payer (Effective 2020-Present) Name: Rosario Bateman Relation to Subscriber: Self Name: Rosario Bateman Payer ID: Not on file Type: Not on file Address: [place] [id number] 2020 Unknown [employer] [id number] 2020-Present [address] [place] [address] [id number] 1991 Unknown [id number] 1991 Unknown [id number] 1991 Unknown [id number] 1991 Unknown [id number] 1959 Unknown [id number] Social History Date Type Detail Facility Start: 08-25-2023 Tobacco smoking stat [facility] Never smoked tobacco [facility] Start: 08-25-2023 Tobacco use and exposure Smoke less tobacco non-user [facility] Start: 08-27-2023 End: 09-06-2024 Alcoholic beverage intake Lifetime non-drinker (finding) [facility] Start: 08-27-2023 End: 08-18-2024 History of Social function [facility] Start: 08-27-2023 End: 08-18-2024 Tobacco use panel [facility] Start: 08-24-2023 Alcohol Comment Caffeine intak e: 1-2 cups per day [facility] Start: 1990 Sex assigned at Female [facility] Start: 08-25-2023 Gender identity Identifies as female gender (finding) [facility] Start: 08-25-2023 Sexual orientation Heterosexual (fin ding) [facility] How often do you nee d to have someone help you when you read instructions, pamphlets, or other written material from your doctor or pharmacy [SILS] Never [facility] Do you belong to any clubs or organizations such as rastafari groups, unions, fraternal or athletic groups, or school groups? No [facility] Are you now , , , , never or living with a partner? [facility] How often to you hav e a drink containing alcohol? Monthly or less [facility] How many standard dr inks containing alcohol do you have on a typical day? 3 or 4 [facility] How often do you hav e 6 or more drinks on 1 occasion? Never [facility] Do you feel stress - tense, restless, nervous, or anxious, or unable to sleep at night because your mind is troubled all the time - these days [OSQ] Not at all [facility] (I/We) worried wheth er (my/our) food would run out before (I/we) got money to buy more. Never true [facility] History of Present illness Narrative 09-06-2024 ERIK Christensen - 09/06/2024 9:00 AM EDT Note Date & Type Note Facility 09-06-2024 History of Presen t illness Narrative Reason for Appointment: Patient ID: Rosario Bateman is a 34 y.o. female who presents for Well Women Visit Patient presents today for Annual Exam. MEDICATIONS Current Outpatient Medications Medication Instructions ferrous fumarate-vitamin C ER ([place]-Sequeles 65-25) 1 tablet, Oral, Daily with breakfast, Do not crush, chew, or split. fexofenadine (KRISTIN ALLERGY) 180 mg, Oral, Daily ibuprofen 800 mg, Oral, Every 8 hours PRN Misc Natural Products (FIBER 7 PO) 1 each, Oral, Daily Multiple Vitamins-Minerals (WOMENS DAILY FORMULA PO) 1 each, Oral, Daily ALLERGIES Allergies Allergen Reactions Other Unknown Penicillin G Rash PROBLEMS Active Ambulatory Problems Diagnosis Date Noted Multinodular goiter (CMS/HCC) 08/25/2023 Acute URI 08/27/2023 Environmental and seasonal allergies 03/02/2024 Acute non-recurrent maxillary sinusitis 08/18/2024 Lumbar back pain 08/18/2024 Resolved Ambulatory Problems Diagnosis Date Noted No Resolved Ambulatory Problems Past Medical History: Diagnosis Date Allergic rhinitis Anemia COVID-19 08/2022 H/O spinal fusion 2006 Thyroid nodule (CMS/HCC) HISTORY PAST MEDICAL HISTORY SOCIAL HISTORY Past Medical History: Diagnosis Date Allergic rhinitis Anemia COVID-19 08/2022 H/O spinal fusion 2006 Multinodular goiter (CMS/HCC) Thyroid nodule (CMS/HCC) Social History Tobacco Use Smoking status: Never Smokeless tobacco: Never Substance Use Topics Alcohol use: Never Comment: Caffeine intake: 1-2 cups per day Drug use: Never FAMILY HISTORY Family History Problem Relation Name Age of Onset Diabetes Maternal Grandmother Theresa Diabetes Maternal Grandfather Howard Other (pacemaker) Maternal Grandfather Howard Breast cancer Maternal Great-Grandmother SURGICAL HISTORY Past Surgical History: Procedure Laterality Date ADENOIDECTOMY SPINAL FUSION TONSILLECTOMY REVIEW OF SYSTEMS Review of Systems: Review of Systems Constitutional: Negative. HENT: Negative. Eyes: Negative. Respiratory: Negative. Cardiovascular: Negative. Gastrointestinal: Negative. Genitourinary: Negative. Musculoskeletal: Negative. Skin: Negative. Neurological: Negative. All other systems reviewed and are negative. Hematological: Negative. Endocrine: Negative. Allergic/Immunologic: Negative. OBJECTIVE Objective: Physical Exam Constitutional: Appearance: Normal appearance. She is well-developed. Genitourinary: Vulva normal. Right Adnexa: not tender and no mass present. Left Adnexa: not tender and no mass present. No cervical discharge. Breasts: Breasts are soft. Right: Normal. Left: Normal. HENT: Head: Normocephalic. Nose: Nose normal. Mouth/Throat: Mouth: Mucous membranes are moist. Cardiovascular: Rate and Rhythm: Normal rate and regular rhythm. Pulmonary: Effort: Pulmonary effort is normal. Breath sounds: Normal breath sounds. Abdominal: General: Bowel sounds are normal. There is no distension. Palpations: Abdomen is soft. Tenderness: There is no abdominal tenderness. There is no guarding or rebound. Musculoskeletal: General: No swelling. Normal range of motion. Cervical back: Normal range of motion. Right lower leg: No edema. Left lower leg: No edema. Neurological: General: No focal deficit present. Mental Status: She is alert and oriented to person, place, and time. Skin: General: Skin is warm and dry. Psychiatric: Mood and Affect: Mood normal. Behavior: Behavior normal. Vitals and nursing note reviewed. Exam conducted with a third helper present. Vitals: Estimated body mass index is 24.02 kg/m as calculated from the following: Height as of 08/18/24: 5' 8 . Weight as of this encounter: 158 lb. BP: 108/70 No LMP recorded. ASSESSMENT & PLAN ICD-10-CM 1. Well woman exam with routine gynecological exam Z01.419 Pap Smear HPV DNA probe, amplified Annual Exam: Patient presents today for an annual exam. Patient states she is doing well with complaints of heavy vaginal bleeding during mid cycle. Patient given info on mirena and kapil. Patient will schedule when she decides which she wishes to do. We discussed both options and stated mirena probably most beneficial at this time. Pap was obtained without difficulty. Orders Placed This Encounter Procedures HPV DNA probe, amplified Follow Up: Patient is to return in one year for annual unless needed otherwise. Documented by Daya Anand LPN on behalf of: ERIK Christensen documented in this encounter [facility] History of Present illness Narrative 08-18-2024 Idania Braun NP - 08/18/2024 4:43 PM Nina Braun NP - 08/18/2024 4:38 PM EDTHUMBHONG RUELAS - 08/18/2024 4:00 PM EDMarlee Braun NP - 08/18/2024 4:00 PM EDT Note Date & Type Note Facility 08-18-2024 History of Presen t illness Narrative Associated Problem(s): Lumbar back pain Chronic lumbar back pain Hx of lumbar fusion Uses Ibuprofen PRN Associated Problem(s): Acute non-recurrent maxillary sinusitis Doxy BID for 10 days Tessalon prn for cough Fluids, rest, fu if not better Pt started having symptoms last Wednesday 08/08 S/s started with sore throat, runny nose, and mucus Pt is still having runny, nose, headaches, body aches, fatigue, ears are plugged/popping, diarrhea (green), coughing up green mucus in the morning and yellow later in the day pt does state she has been coughing up dark red here and there until it lightens up, cold chills Pt has been taking a daytime and night time vapor chilling cold and flu congestion every 4hrs and IBU prn Images from the original note were not included. Rosario Bateman is a 34 y.o. female presents with chief complaint of No chief complaint on file. HPI: URI This is a new problem. The current episode started 1 to 4 weeks ago. The problem has been waxing and waning. There has been no fever. Associated symptoms include congestion, coughing, diarrhea, rhinorrhea and sinus pain. Pertinent negatives include no abdominal pain, chest pain, dysuria, ear pain, headaches, nausea, plugged ear sensation, rash, sore throat, swollen glands, vomiting or wheezing. She has tried antihistamine for the symptoms. The treatment provided mild relief. SUBJECTIVE: MEDICATIONS: Current Outpatient Medications Medication Instructions ferrous fumarate-vitamin C ER ([place]-Sequ[place] 65-25) 1 tablet, Oral, Daily with breakfast, Do not crush, chew, or split. ibuprofen 800 mg, Oral, Every 6 hours PRN Misc Natural Products (FIBER 7 PO) 1 each, Oral, Daily Multiple Vitamins-Minerals (WOMENS DAILY FORMULA PO) 1 each, Oral, Daily ALLERGIES: Allergies Allergen Reactions Other Unknown Penicillin G Rash REVIEW OF SYMPTOMS: Review of Systems Constitutional: Negative for appetite change, chills and fever. HENT: Positive for congestion, rhinorrhea and sinus pain. Negative for ear pain and sore throat. Eyes: Negative for pain, discharge, redness and visual disturbance. Respiratory: Positive for cough. Negative for shortness of breath and wheezing. Cardiovascular: Negative for chest pain, palpitations and leg swelling. Gastrointestinal: Positive for diarrhea. Negative for abdominal pain, blood in stool, constipation, nausea and vomiting. Genitourinary: Negative for difficulty urinating, dysuria and frequency. Musculoskeletal: Positive for back pain. Negative for arthralgias, joint swelling and myalgias. Skin: Negative for rash and wound. Neurological: Negative for dizziness, tremors, seizures, syncope and headaches. Psychiatric/Behavioral: Negative for behavioral problems, self-injury and suicidal ideas. The patient is not nervous/anxious. Hematological: Does not bruise/bleed easily. Endocrine: Negative for polydipsia, polyphagia and polyuria. Allergic/Immunologic: Negative for environmental allergies and food allergies. PAST MEDICAL HISTORY Past Medical History: Diagnosis Date Allergic rhinitis Anemia COVID-19 08/2022 H/O spinal fusion 2006 Multinodular goiter (CMS/HCC) Thyroid nodule (CMS/HCC) Past Surgical History: Procedure Laterality Date ADENOIDECTOMY SPINAL FUSION TONSILLECTOMY family history includes Breast cancer in her maternal great-grandmother; Diabetes in her maternal grandfather and maternal grandmother; pacemaker in her maternal grandfather. OBJECTIVE: Visit Vitals BP 110/82 Pulse 62 Temp 98.1 F (Temporal) Resp 18 Ht 5' 8 Wt 157 lb 6.4 oz SpO2 99% BMI 23.93 kg/m Smoking Status Never BSA 1.85 m Physical Exam Vitals and nursing note reviewed. Constitutional: General: She is not in acute distress. Appearance: Normal appearance. HENT: Head: Normocephalic and atraumatic. Right Ear: Tympanic membrane, ear canal and external ear normal. Left Ear: Tympanic membrane, ear canal and external ear normal. Nose: Congestion present. No rhinorrhea. Comments: Tenderness to bilat max and frontal sinus Mouth/Throat: Mouth: Mucous membranes are moist. Pharynx: No oropharyngeal exudate or posterior oropharyngeal erythema. Eyes: Extraocular Movements: Extraocular movements intact. Conjunctiva/sclera: Conjunctivae normal. Cardiovascular: Rate and Rhythm: Normal rate and regular rhythm. Pulses: Normal pulses. Heart sounds: Normal heart sounds. Pulmonary: Effort: Pulmonary effort is normal. Breath sounds: Normal breath sounds. No wheezing or rales. Comments: Freq cough Abdominal: General: Bowel sounds are normal. There is no distension. Palpations: Abdomen is soft. There is no mass. Tenderness: There is no abdominal tenderness. Musculoskeletal: General: Normal range of motion. Cervical back: Normal range of motion and neck supple. Right lower leg: No edema. Left lower leg: No edema. Lymphadenopathy: Cervical: No cervical adenopathy. Skin: General: Skin is warm and dry. Capillary Refill: Capillary refill takes 2 to 3 seconds. Findings: No rash. Neurological: General: No focal deficit present. Mental Status: She is alert and oriented to person, place, and time. Psychiatric: Mood and Affect: Mood normal. Behavior: Behavior normal. Thought Content: Thought content normal. Judgment: Judgment normal. ASSESSMENT AND PLAN: No follow-ups on file. Problem List Items Addressed This Visit Acute non-recurrent maxillary sinusitis - Primary Doxy BID for 10 days Tessalon prn for cough Fluids, rest, fu if not better Relevant Medications benzonatate (Tessalon) 200 MG capsule doxycycline (Vibra-Tabs) 100 MG tablet Lumbar back pain Chronic lumbar back pain Hx of lumbar fusion Uses Ibuprofen PRN Relevant Medications ibuprofen 800 MG tablet documented in this encounter [facility] Evaluation note Note Date & Type Note Facility Evaluation note Diagnosis Acute non-recurrent maxillary sinusitis- Primary Lumbar back pain Lumbago documented in this encounter [facility] Evaluation note Note Date & Type Note Facility Evaluation note Diagnosis Acute non-recurrent maxillary sinusitis- Primary Lumbar back pain Lumbago Well woman exam with routine gynecological exam Routine gynecological examination documented in this encounter [facility] Summary Purpose Family History No Family History Records FoundNo Family History Records FoundNo Family History Records Found Advance Directives No Advanced Directives Records FoundNo Advanced Directives Records FoundNo Advanced Directives Records Found Additional Source Comments INFORMATION SOURCE (unrecogn ized section and content) DATE CREATED AUTHOR 10/18/2020 [facility] DATE CREATED AUTHOR AUTHOR'S ORGANIZ ATION 10/02/2022 [facility] DATE CREATED AUTHOR AUTHOR'S ORGANIZ ATION 09/06/2024 [facility] EPIC Care Teams (unrecognized sec tion and content) Senior Management Consultant Relationship Specialty Start Date End Date Jose Antonio Rodriguez MD [address] [place] [phone] PCP - General Family Medicine 08/18/24 Idania Braun NP [address] [place] [phone] Nurse Practitioner Family Medicine 08/06/24 Idania Braun NP [address] [place] [address] Nurse Practitioner Family Medicine 08/18/24 Senior Management Consultant Relationship Specialty Start Date End Date Jose Antonio Rodriguez MD [address] [place] [address] PCP - General Family Medicine 08/18/24 Idania Braun NP [address] [place] [address] Nurse Practitioner Family Medicine 08/06/24 Idania Braun NP [address] [place] [address] Nurse Practitioner Family Medicine 08/18/24 Senior Management Consultant Relationship Specialty Start Date End Date Jose Antonio Rodriguez MD [address] [place] [address] PCP - General Family Medicine 08/18/24 Idania Braun NP [address] [place] [address] Nurse Practitioner Family Medicine 08/06/24 Idania Braun NP [address] [place] [address] Nurse Practitioner Family Medicine 08/18/24 Senior Management Consultant Relationship Specialty Start Date End Date Jose Antonio Rodriguez MD [address] [place] [address] PCP - General Family Medicine 08/18/24 Idania Braun NP [address] [place] [address] Nurse Practitioner Family Medicine 08/06/24 Idania Braun NP [address] [place] [address] Nurse Practitioner Family Medicine 08/18/24 Reason for Visit (unrecogniz ed section and content) Reason Comments Well Women Visit FOR RECORDS PERTAINING TO PATIENTS WHO ARE [...] BE BASED ON THE PRIMARY CLINICAL RECORDS. [facility] [address] [facility]. provides no warranty or guarantee of the accuracy or completeness of information in this document.
[2024-09-14 09:11] LABS: Age Gdln ACOG Testing Note (.); HPV Aptima Negative (Negative); IGP, Aptima HPV, rfx 16/18,45 Note (.)
== END 2024-09-06 21:14 | disposition home or self-care (01) ==
LOC: LAB 21:13
PROVIDERS: PCP Nurse Practitioner; Visit Provider Physician Assistant
DX: Z01.419 Encounter for gynecological examination (general) (routine) without abnormal findings (principal)
CPT/HCPCS: 87624; 88175

== ENCOUNTER 2024-09-17 13:20 | Day surgery (SDC) | payer OTHER, SELFPAY ==
--- NOTE | 2024-09-17 13:23 | US_ITS ---
[address] [address] Patient Name: EFRAIN CHURCHILL MRN: [id number] date: 1990 Sex: F Assigned Patient Location: US Current Patient Location: US Accession/Order Number: [id number] Exam Date: 09/17/2024 13:45 Report Date: 09/17/2024 14:37 At the request of: ANALIA JOHNSON Procedure: US biopsy thyroid EXAMINATION: US biopsy thyroid HISTORY: Thyroid Nodule COMPARISON: Ultrasound thyroid 09-02 TECHNIQUE: After obtaining informed consent, ultrasound-guided fine needle aspiration was performed in the usual sterile manner. FINDINGS: IMAGING: Ultrasound. BIOPSY NEEDLE: 25-gauge; 3 separate passes LOCATION: Right lobe 1.9 cm TR 4 nodule. SPECIMEN TYPE: Cellular tissue. LOCAL ANESTHETIC: Buffered Xylocaine. COMPLICATIONS: None. LABORATORY: Prepared slide smears and washings for cell block evaluation. OTHER: Negative. PATHOLOGY: Pending. An addendum will be added when results are available. US/US biopsy thyroid IMPRESSION: 1. Uneventful ultrasound guided fine needle aspiration (FNA). 2. Pathology results are pending. Electronically authenticated by: KEILA DICKINSON Date: 09/17/2024 14:37
[2024-09-17 13:30] VITALS: BP 107/76; PULSE 78; O2SAT 97
[2024-09-17] MEDS: LIDOCAINE HCL 10 ML, SODIUM BICARBONATE 1 MEQ INJ (14:05)
--- NOTE | 2024-09-17 15:23 | SUR.PREOP ---
09/07/24 Pt instructed on procedure, date, time, and prep.
== END 2024-09-17 14:20 | disposition home or self-care (01) ==
LOC: US 13:20
PROVIDERS: Radiology Diagnostic Radiology; PCP Nurse Practitioner; Visit Provider Otolaryngology
DX: E04.1 Nontoxic single thyroid nodule (principal)
CPT/HCPCS: 10005; 88173

== ENCOUNTER 2025-09-21 17:03 | Outpatient (OUT) | payer OTHER, SELFPAY ==
--- OUTSIDE RECORDS SUMMARY | 2024-10-12 13:30 | XMS_ITS | Encounter Summary ---
Author Organization [facility] Address [address] [place] [address] Care Team Providers Care Access Service Representative Name Role Phone Idania Braun TAPE MACHINE TAILER Unavailable [phone] Jose Antonio Rodriguez MD Primary Care Provider [phone] Idania Braun TAPE MACHINE TAILER Unavailable [phone] Reason for Visit * ReasonCommentsThyroid NoduleFollow up FNA 09/20/24 Encounter Details DateTypeDepartmentCare Team (Latest Contact Info)Rarovisvbnw94/03/2024 1:30 PM ESTOffice Visit [facility] [place] [facility] [address] [facility] [address] [place] [address] Saniya Raines MD [address] [facility] [address] [place] [address] Thyroid nodule (Primary Dx) Social History Tobacco UseTypesPacks/DayYears UsedDateSmoking Tobacco: NeverSmokeless Tobacco: NeverAlcohol UseStandard Drinks/WeekCommentsNever0 (1 standard drink = 0.6 oz pure alcohol)Caffeine intake: 1-2 cups per [id number] Health LiteracyAnswerDate RecordedHow often do you need to have someone help you when you read instructions, pamphlets, or other written material from your doctor or pharmacy? Never08/18/2024Social Connection and Isolation PanelAnswerDate RecordedIn a typical week, how many times do you talk on the phone with family, friends, or neighbors?More than three times a week08/18/2024How often do you get together with friends or relatives?More than three times a week08/18/2024How often do you attend baptism or tenriism services?Never08/18/2024o you belong to any clubs or organizations such as baptism groups, unions, fraternal or athletic groups, or school groups?No08/18/2024How often do you attend meetings of the clubs or organizations you belong to?Never08/18/2024re you , , , , never , or living with a partner?Wzuemik4408/18/2024UDIT-C AnswerDate RecordedQ1: How often do you have a drink containing alcohol?Monthly or less08/18/2024Q2: How many drinks containing alcohol do you have on a typical day when you are drinking?3 or Q3: How often do you have six or more drinks on one occasion?Never08/18/2024Overall Financial Resource Strain (CARDIA) AnswerDate RecordedHow hard is it for you to pay for the very basics like food, housing, medical care, and heating?Not hard at all08/18/2024[facility] [place] [facility] - Occupational Stress QuestionnaireAnswerDate RecordedDo you feel stress - tense, restless, nervous, or anxious, or unable to sleep at night because yourmind is troubled all the time - these days?Not at all08/18/2024 Exercise Vital SignAnswerDate RecordedOn average, how many days per week do you engage in moderate to strenuous exercise (like a brisk walk)?3 days08/18/2024On average, how many minutes do you engage in exercise at this level?20 min 08/18/2024Hunger Vital SignAnswerDate RecordedWithin the past 12 months, you worried that your food would run out before you got the money to buymore.Never true08/18/2024Within the past 12 months, the food you bought just didn't last and you didn't have money to get more.Never true08/18/2024RAPARE - TransportationAnswerDate RecordedIn the past 12 months, has lack of transportation kept you from medical appointments or from getting medications?No 08/18/2024In the past 12 months, has lack of transportation kept you from meetings, work, or from getting things needed for daily living?No08/18/2024 Housing Stability Vital SignAnswerDate RecordedIn the last 12 months, was there a time when you were not able to pay the mortgage or rent on time?No08/18/2024In the past 12 months, how many times have you moved where you were living?0 08/18/2024t any time in the past 12 months, were you homeless or living in a penitentiary (including now)?No08/18/2024CommentsUnknownSex and Gender InformationValueDate RecordedSex Assigned at OfsrnOibjbz68/16/2023 3:10 PM EDT Legal PlgBevsod41/15/2023 11:15 PM EDTGender JcxqavqrLwiary24/16/2023 3:10 PM EDTSexual OmzrfwvqnfwTnhnplbk63/16/2023 3:10 PM EDTdocumented as of this encounter Last Filed Vital Signs Vital SignReadingTime TakenCommentsBlood Mhrxtqqk994/7610/12/2024 1:27 PM EST Pulse--Temperature--Respiratory Rate--Oxygen Saturation--Inhaled Oxygen Concentration--Qexemw59.6 kg (160 lb)10/12/2024 1:27 PM VIKChfnnl422.7 cm (5' 8 )10/12/2024 1:27 PM ESTBody Mass Index24.33112/13/2023 1:27 PM ESTdocumented in this encounter Progress Notes * Saniya Raines MD - 10/12/2024 1:30 PM EST Subjective Patient ID: Gema Bateman is a 34 y.o. female who presents for Thyroid Nodule (Follow up FNA 09/20/24) FNA path shows a Mitchell 2 nodule. Family History Problem Relation Name Age of Onset Diabetes Maternal Grandmother Theresa Diabetes Maternal Grandfather Howard Other (pacemaker) Maternal Grandfather Howard Breast cancer Maternal Great-Grandmother Active Ambulatory Problems Diagnosis Date Noted Multinodular goiter (CMS/HCC) 08/25/2023 Acute URI 08/27/2023 Environmental and seasonal allergies 03/02/2024 Acute non-recurrent maxillary sinusitis 08/18/2024 Lumbar back pain 08/18/2024 Resolved Ambulatory Problems Diagnosis Date Noted No Resolved Ambulatory Problems Past Medical History: Diagnosis Date Allergic rhinitis Anemia COVID-19 08/2022 H/O spinal fusion 2006 Thyroid nodule (CMS/HCC) Past Surgical History: Procedure Laterality Date ADENOIDECTOMY SPINAL FUSION TONSILLECTOMY Allergies Allergen Reactions Other Unknown Penicillin G Rash Current Outpatient Medications on File Prior to Visit Medication Sig Dispense Refill ferrous fumarate-vitamin C ER ([place] 65-25) Take 1 tablet by mouth in the morning. Take with meals. Do not crush, chew, or split. . fexofenadine (Kristin Allergy) 180 MG tablet Take 180 mg by mouth Daily Misc Natural Products (FIBER 7 PO) Take 1 each by mouth in the morning. Multiple Vitamins-Minerals (WOMENS DAILY FORMULA PO) Take 1 each by mouth in the morning. No current facility-administered medications on file prior to visit. Objective Last Recorded Vitals Vitals: 10/12/24 1327 BP: 124/76 ENT Physical Exam Constitutional Appearance: patient appears well-developed, well-nourished and well-groomed, Communication/Voice: communication appropriate for developmental age; vocal quality normal; Assessment/Plan Diagnoses and all orders for this visit: Thyroid nodule (CMS/HCC) Very reassuring FNA. Resume annual US documented in this encounter Miscellaneous Notes * Addendum Note - Rosamaria Hernandez - 10/12/2024 1:30 PM ESTAddended by: ROSAMARIA HERNANDEZ on: 09/13/2025 02:11 PM Modules accepted: Orders * Addendum Note - Rosamaria Hernandez - 10/12/2024 1:30 PM ESTAddended by: ROSAMARIA HERNANDEZ on: 09/13/2025 02:49 PM Modules accepted: Orders documented in this encounter Plan of Treatment DateTypeDepartmentCare Team (Latest Contact Info)Nxfplrtirqy43/04/2025 3:00 PM ESTProcedure Visit [facility] [address] [place] [address] Tamera Buck PA [address] [place] [address] [place] [address] 10/25/2025 11:10 AM ESTOffice Visit [facility] [place] [facility] [address] [facility] [address] [place] [phone] Saniya Raines MD [address] [facility] [address] [place], [place] [id number] NameTypePriorityAssociated DiagnosesOrder ScheduleUS thyroidImagingRoutine Thyroid nodule Expected: 10/10/2025, Expires: 09/13/2026documented as of this encounter Visit Diagnoses Diagnosis Thyroid nodule- Primary Nontoxic uninodular goiter documented in this encounter Care Teams Team MemberRelationshipSpecialtyStart DateEnd Date Jose Antonio Rodriguez MD [address] [place] [address] PCP - GeneralFamily Aektpwxg54/9/24 Idania Braun NP Nurse PractitionerFamily Medicine08/06/2410 Idania Braun NP [address] [place] [address] Nurse PractitionerFamily Mhnwhhxg80/9/24documented as of this encounter
--- NOTE | 2025-09-21 17:04 | US_ITS ---
The [address] [address] Patient Name: EFRAIN CHURCHILL MRN: [id number] date: 1990 Sex: F Assigned Patient Location: US Current Patient Location: Accession/Order Number: [id number] Exam Date: 09/21/2025 17:08 Report Date: 09/22/2025 08:39 At the request of: ANALIA JOHNSON MD Procedure: US thyroid THYROID ULTRASOUND CLINICAL DATA: Follow-up thyroid nodules. Prior right biopsy. COMPARISON: 08/11/2024 The right thyroid lobe measures 5.3 x 1.6 x 1.9 cm. The left lobe measures 4.6 x 1.0 x 1.9 cm. The isthmus measures 2 mm. Thyroid echotexture is slightly heterogeneous. Multiple bilateral thyroid nodules are again seen. The largest were measured. At the mid pole on the right there is a mixed echogenicity cystic and solid nodule measuring 1.9 x 1.5 x 1.7 cm. There might be echogenic foci and calcifications are not excluded. Size has not significantly changed. At the inferior pole on that side, there is a similar isoechoic nodule measuring 10 x 9 x 8 mm (TI-RADS 3). At the pole, there is a small hypoechoic nodule measuring 5 x 4 x 5 mm which is similar (TI-RADS 4). At the thyroid isthmus on the right, a couple additional TI-RADS 4 hypoechoic nodules are seen, the largest measuring 9 mm in size. On the left, several TI-RADS 4 hypoechoic nodules are again seen. The largest is at the inferior pole measuring 9 x 5 x 7 mm. In close proximity is another measuring 6 x 5 x 6 mm. At the superior pole, there is another measuring 5 x 3 x 5 mm. These are similar. US/US thyroid IMPRESSION: SIMILAR DOMINANT RIGHT THYROID NODULE, RECENTLY BIOPSIED. ADDITIONAL MULTIPLE TI-RADS 3/4 NODULES, NOT SIGNIFICANT CHANGED. Impression dictated by: Milvia Mckeon M.D. 09/22/2025 8:39 AM Dictation Location: [place] [address] Electronically authenticated by: [id number] Y Date: 09/22/2025 08:39
--- OUTSIDE RECORDS SUMMARY | 2025-09-21 17:06 | XMS_ITS | Clinical Summary ---
Author Organization [facility] Address [address] [place] [address] Care Team Providers Care Telegraph Mechanic Name Role Phone Jose Antonio Rodriguez MD Primary Care Provider [phone] Idania Braun NP Unavailable [phone] Allergies Active AllergyReactionsCriticalityNoted CdjbAxatzpmhFewceJbwzoae84/12/2023 Penicillin HKwavUzz16/12/2023 Medications MedicationSigDispense QuantityRefillsLast FilledStart DateEnd DateStatus Misc Natural Products (FIBER 7 PO) Take 1 each by mouth DailyActive Multiple Vitamins-Minerals (WOMENS DAILY FORMULA PO) Take 1 each by mouth DailyActive ferrous fumarate-vitamin C ER ([place] 65-25) Take 1 tablet by mouth in the morning. Take with meals. Do not crush, chew, or split. .Active fexofenadine (Kristin [facility]) 180 MG tablet Take 180 mg by mouth DailyActive Active Problems ProblemNoted DateDiagnosed DateNeoplasm of uncertain saifbpia03/29/2025 Assessment & Plan (03/08/2025 8:13 AM EDT): Here at appt with , asked about looking at skin lesion on abd area Approx 5-6mm, color variation, no ulcerations Lumbar back pain08/18/2024 Assessment & Plan (08/18/2024 4:43 PM EDT): Chronic lumbar back pain Hx of lumbar fusion Uses Ibuprofen PRN Environmental and seasonal tiyeunfmr62/23/2024Multinodular xzqikh8708/25/2023 Resolved Problems ProblemNoted DateDiagnosed DateResolved DateAcute non-recurrent maxillary pyqugblqy24/ Assessment & Plan (08/18/2024 4:38 PM EDT): Doxy BID for 10 days Tessalon prn for cough Fluids, rest, fu if not better Acute URI1/ Immunizations ImmunizationAdministration DatesNext DueInfluenza, injectable, quadrivalent, preservative free08/06/2023,09/13/2022,09/02/2020 Family History Medical HistoryRelationNameCommentsDiabetesMaternal GrandfatherCharlespacemaker Maternal GrandfatherCharlesDiabetesMaternal GrandmotherConnieBreast cancer Maternal Great-GrandmotherRelationNameStatusCommentsFatherAliveMaternal GrandfatherCharlesMaternal GrandmotherConnieMaternal Great-GrandmotherOther MotherAlive Social History Tobacco UseTypesPacks/DayYears UsedDateSmoking Tobacco: NeverSmokeless Tobacco: Never Tobacco Cessation:Counseling Given: Not Answered Alcohol UseStandard Drinks/WeekCommentsNever0 (1 standard drink = 0.6 oz pure alcohol)Caffeine intake: 1-2 cups per yypD1115 Health LiteracyAnswerDate RecordedHow often do you need [...] times a week08/18/2024How often do you attend samaritan or anabaptism services?Never08/18/2024o you belong to any clubs or organizations such as samaritan groups, unions, fraternal or athletic groups, or school groups?No08/18/2024How often do you attend meetings of the clubs or organizations you belong to?Never08/18/2024re you , , , , never , or living with a partner?Fnurgwv8808/18/2024UDIT-C AnswerDate RecordedQ1: How often do you have [...] housing, medical care, and heating?Not hard at all08/18/2024[facility] [place] [facility] - Occupational Stress QuestionnaireAnswerDate [...] were you homeless or living in a intermediate (including now)?No10/09/2024CommentsUnknownSex and Gender InformationValueDate RecordedSex Assigned at EaaacAqnbol82/16/2023 3:10 PM EDT Legal ZcqTngsgd29/15/2023 11:15 PM EDTGender VlnzcovcUfvtzi57/16/2023 3:10 PM EDTSexual EkwgwjvhhqmYjomvnlr33/16/2023 3:10 PM EDT Last Filed Vital Signs Vital SignReadingTime TakenCommentsBlood Wysuqcui685/7610/12/2024 1:27 PM EST Rbkdq452908/18/2024 4:05 PM WKFOjxgtxrjmdw69.7 ??C (98.1 ??F)08/18/2024 4:05 PM EDTRespiratory Kycy8411 4:05 PM EDTOxygen Rgchcjhwfz43%08/18/2024 4:05 PM EDTInhaled Oxygen Concentration--Quasmm64.6 kg (160 lb)10/12/2024 1:27 PM EST Qfuexe078.7 cm (5' 8 )10/12/2024 1:27 PM ESTBody Mass Index24.33112/13/2023 1:27 PM EST Plan of Treatment DateTypeDepartmentCare Team (Latest Contact Info)Tqopugudnqj61/04/2025 3:00 PM ESTProcedure Visit [facility] [address] [place] [address] Tamera Buck PA [address] [place] [address] 10/25/2025 11:10 AM ESTOffice Visit [facility] [place] [facility] [address] [facility] [address] [place] [id number] Saniya Raines MD [address] [facility] [address] [place] [address] Health MaintenanceDue DateLast DoneCommentsCOVID-19 Vaccine (2024- season) 5008/06/2023, 04/24/2021, 1Pap Smear71, 08/26/2023ervical Cancer Lelttnvja00/17/2028HPV/Oanmdd0508/26/2028Influenza QjvxltqDqjykkxui99/24/2025, 10/12/2024, 08/06/2023, Additional history exists Pneumococcal Vaccine: Pediatrics (0 to 5 Years) and At-Risk Patients (6 to 64 Years)Aged OutNo longer eligible based on patient's age to complete this topic Procedures Procedure NamePriorityDate/TimeAssociated DiagnosisCommentsPAP SMEARRoutine 09/06/2024 12:00 AM EDTfrom Last 3 Months or Most Recently Relevant to Health Maintenance Results * Pap Smear (09/06/2024 12:00 AM EDT)Specimen (Source)Anatomical Location / LateralityCollection Method / VolumeCollection TimeReceived TimeSwabCervical swab / Unknown Narrative Authorizing ProviderResult TypeResult StatusAmy [facility] CYTOLOGY ORDERABLES Final ResultPerforming OrganizationAddressCity/State/ZIP CodePhone Number EXTERNAL LAB from Last 3 Months or Most Recently Relevant to Health Maintenance Insurance Care Teams Team MemberRelationshipSpecialtyStart DateEnd Date Jose Antonio Rodriguez MD [address] [place] [address] PCP - GeneralFamily Cujfwpwr25/9/24 Idania Braun NP [address] [place] [address] Nurse PractitionerFamily Sgrstsmh43/9/24
--- OUTSIDE RECORDS SUMMARY | 2025-09-21 17:06 | XMS_ITS | CCD ---
Author Organization [facility] Care Team Providers Care Assignment Clerk Name Role Phone ELIZABETH, DR HELMS Admitting Unavailable TIMMIS, DR HELMS Attending Unavailable HOUSE, DR CASTILLO Primary Care Unavailable TIMMIS, DR HELMS Consulting Unavailable Kimi, DR Ann Consulting Unavailable HOUSE, DR CASTILLO Admitting Unavailable HOUSE, DR CASTILLO Attending Unavailable HOUSE, DR CASTILLO Primary Care Unavailable HOUSE, DR CASTILLO Consulting Unavailable Aichholchuy SHEET METAL WELDER, Idania Unavailable Jose Antonio Rodriguez MD Primary Care Provider Kade SHEET METAL WELDER, Idania Unavailable CHARLES ELIAS Attending Unavailable AICHHOLZ, IDANIA Referring Unavailable AICHHOLZ, IDANIA Attending Unavailable TAMERA GUTIERREZ Attending Unavailable TIMMIMimi, SANIYA Pompa Attending Unavailable AICHHOLZ, IDANIA Referring Unavailable TIMMIS, SANIYA H Attending Unavailable NADFLAVIO, JOSE ANTONIO Referring Unavailable Aichholz SHEET METAL WELDER, Idania Unavailable Jose Antonio Rodriguez MD Primary Care Provider [phone] Kade SHEET METAL WELDER, Idania Unavailable Allergies Allergy ClassificationReported Allergen(s)Allergy TypeDate of OnsetReaction(s) Facility (1 source)PenicillinDrug AllergyThe [facility] (20 sources)Penicillin GDrug Rqpgoia61-55-8288[facility] (20 sources)OtherPropensity to adverse qqcbrdcan50-53-7015EhbzsmeOWUQ Healthcare Medications Current Medications MedicationDrug Class(es)DatesSig (Normalized)Sig (Original)benzonatate 200 mg oral capsule (2 sources)Non-narcotic AntitussiveStart: 08-18-2024 End: 00-10-1957qlcd 1 capsule by mouth three times daily as needed for cough benzonatate (Tessalon) 200 MG capsule Indications: Acute non-recurrent maxillary sinusitis Take 1 capsule (200 mg) by mouth 3 (three) times a day as needed for cough for up to 7 days Take with full glass of water. Do not crush or chew. 21 capsule 08/18/2024 08/25/2024 Activedoxycycline hyclate 100 mg oral tablet (2 sources)Tetracycline-class DrugStart: 08-18-2024 End: 43-02-9970gzjunxzuqvo (Vibra-Tabs) 100 MG tablet Indications: Acute non- recurrent maxillary sinusitis Take 1 tablet (100 mg) by mouth in the morning and 1 tablet (100 mg) before bedtime. Do all this for 10 days. Take with a full glass of water and do not lie down for at least 30 minutes after.. 20 tablet 08/18/2024 08/28/2024 Activeferrous fumarate-vitamin C ER ([place] 65-25) (20 sources)take 1 tablet by mouth at mealtimeferrous fumarate-vitamin C ER ([place] 65-25) Take 1 tablet by mouth in the morning. Take with meals. Do not crush, chew, or split. . Activefexofenadine hydrochloride 180 mg oral tablet (18 sources)Histamine-1 Receptor Antagonisttake 1 tablet by mouth once daily fexofenadine (Kristin Allergy) 180 MG tablet Take 180 mg by mouth Daily Active ibuprofen 800 mg oral tablet (13 sources)Nonsteroidal Anti-inflammatory DrugStart: 04-06-2025 End: 73-83-5818wdei 1 tablet by mouth every eight hours for painibuprofen 800 MG tablet Indications: Lumbar back pain Take 1 tablet (800 mg) by mouth every 8 (eight) hours if needed for moderate pain 90 tablet 1 04/06/2025 05/06/2025 ActiveStart: 08-18-2024 End: 95-84-7975kooe 1 tablet by mouth every eight hours for painibuprofen 800 MG tablet Indications: Lumbar back pain Take 1 tablet (800 mg) by mouth every 8 (eight) hours if needed for moderate pain 90 tablet 1 08/18/2024 09/17/2024 ActiveStart: 07-28-2023 End: 31-37-0377lgkf 1 tablet by mouth every six hours as needed for pain ibuprofen 800 MG tablet Take 800 mg by mouth every 6 (six) hours if needed for mild pain. 07/28/2023 08/18/2024 Discontinued (Reorder)Misc Natural Products (FIBER 7 PO) (20 sources)take 1 dose by mouth once dailyMisc Natural Products (FIBER 7 PO) Take 1 each by mouth Daily Activetake 1 dose by mouth in the morningMisc Natural Products (FIBER 7 PO) Take 1 each by mouth in the morning. ActiveMultiple Vitamins-Minerals (WOMENS DAILY FORMULA PO) (20 sources)take 1 dose by mouth once dailyMultiple Vitamins-Minerals (WOMENS DAILY FORMULA PO) Take 1 each by mouth Daily Activetake 1 dose by mouth once daily in the morningMultiple Vitamins-Minerals (WOMENS DAILY FORMULA PO) Take 1 each by mouth in the morning. Active Completed/Discontinued Medications MedicationDrug Class(es)DatesSig (Normalized)Sig (Original)cetirizine hydrochloride 10 mg oral tablet (3 sources)Histamine-1 Receptor AntagonistStart: 03-02-2024 End: 89-09-6622esbc 1 tablet by mouth once dailycetirizine (ZyrTEC) 10 MG tablet Indications: Environmental and seasonal allergies Take 1 tablet (10 mg) by mouth Daily 30 tablet 3 03/02/2024 08/18/2024 Discontinued (Ineffective)triamcinolone acetonide 0.055 mg/actuat metered dose nasal spray (3 sources)CorticosteroidStart: 03-02-2024 End: 57-91-3696jsnp 2 spray(s) nasal route once dailytriamcinolone (Nasacort) 55 MCG/ACT nasal inhaler Indications: Environmental and seasonal allergies Administer 2 sprays into each nostril Daily 16.5 g 3 03/02/2024 08/18/2024 Discontinued Problems Active Problems Problem ClassificationProblemDateDocumented DateEpisodic/ChronicMalaise and fatigue (1 source)Other fatigue; Translations: [OTHER FATIGUE]Onset: 47-34-7770Lxqzefpj Other and unspecified benign neoplasm (2 sources)Melanocytic nevus of trunk; Translations: [Melanocytic nevi of trunk] 49-66-2514RlkaaetnHqrhk and unspecified benign neoplasm (2 sources)Melanocytic nevus of left lower limb; Translations: [Melanocytic nevi of left lower limb, includinghip]62-87-2341XjubauvqOpoom and unspecified benign neoplasm (2 sources)Dermatofibroma; Translations: [Other benign neoplasm of skin, unspecified]74-65-2106BvttgttbRbpzq upper respiratory disease (20 sources)Allergic disposition; Translations: [Other allergic rhinitis]Onset: 609600-54-1263EydzwexYdaedyt (4 sources)Syncope and collapse; Translations: [SYNCOPE AND COLLAPSE]Onset: 28-84-6272HjqtkamjRcjvpbt disorders (20 sources)Nontoxic multinodular goiter; Translations: [Multinodular goiter] Onset: 01-92-7692Zhzhjet Past or Other Problems Problem ClassificationProblemDateDocumented DateEpisodic/ChronicNeoplasms of unspecified nature or uncertain behavior (9 sources)Neoplastic disease of uncertain behavior; Translations: [Neoplasm of uncertain behavior, unspecified]Onset: 323172-83-2362SqovuqnzGljdy upper respiratory infections (20 sources)Acute upper respiratory infection; Translations: [Acute upper respiratory infection, unspecified]Onset: 08-27-2023 Resolved: 078936-64-4997SlfytxorWcyfbavdkwz; intervertebral disc disorders; other back problems (20 sources)Low back pain; Translations: [Lumbar back pain]Onset: 08-18-2024 85-48-4551Obhxtrdi Results Test NameValueInterpretationReference RangeFacilityUS BIOPSY THYROIDon 30-19-[place]15[place], [place] [address] Ultrasound Report Signed Patient: ROSARIO CHURCHILL MR#: [id number] : 1990 Acct:[id number] Age/Sex: 34 / F ADM Date: 09/17/24 Loc: US Attending Dr: Saniya Johnson M.D. Ordering Physician: Saniya Johnson M.D. Date of Service: 09/17/24 Procedure(s): US biopsy thyroid Accession Number(s): [id number] cc: Idania Braun SHEET METAL WELDER; Saniya Johnson M.D. The [address] [address] Patient Name: ROSARIO CHURCHILL MRN: [id number] date: 1990 Sex: F Assigned Patient Location: US Current Patient Location: US Accession/Order Number: [id number] Exam Date: 09/17/2024 13:45 Report Date: 09/17/2024 14:37 At the request of: SANIYA JOHNSON Procedure: US biopsy thyroid EXAMINATION: US biopsy thyroid HISTORY: Thyroid Nodule COMPARISON: Ultrasound thyroid 09-02 TECHNIQUE: After obtaining informed consent, ultrasound-guided fine needle aspiration was performed in the usual sterile manner. FINDINGS: IMAGING: Ultrasound. BIOPSY NEEDLE: 25-gauge; 3 separate passes LOCATION: Right lobe 1.9 cm TR 4 nodule. SPECIMEN TYPE: Cellular tissue. LOCAL ANESTHETIC: Buffered Xylocaine. COMPLICATIONS: None. LABORATORY: Prepared slide smears and washings for cell block evaluation. OTHER: Negative. PATHOLOGY: Pending. An addendum will be added when results are available. US/US biopsy thyroid IMPRESSION: 1. Uneventful ultrasound guided fine needle aspiration (FNA). 2. Pathology results are pending. Electronically authenticated by: SETH BOLDEN Date: 09/17/2024 14:37 Dictated By: Seth Bolden M.D. Signed By: 09/17/24 1440 DD/ 1437 TD/TT: Mirror Department Supervisor:TBHRadiology, Radiologist, MD - 09/17/2024 [place] [address] Ultrasound Report Signed Patient: ROSARIO CHURCHILL MR#: [id number] : 1990 Acct:[id number] Age/Sex: 34 / F ADM Date: 09/17/24 Loc: US Attending Dr: Saniya Johnson M.D. Ordering Physician: Saniya Johnson M.D. Date of Service: 09/17/24 Procedure(s): US biopsy thyroid Accession Number(s): [id number] cc: Idania Braun SHEET METAL WELDER; Saniya Johnson M.D. [address] [address] Patient Name: ROSARIO CHURCHILL MRN: [id number] date: 1990 Sex: F Assigned Patient Location: US Current Patient Location: US Accession/Order Number: [id number] Exam Date: 09/17/2024 13:45 Report Date: 09/17/2024 14:37 At the request of: SANIYA JOHNSON Procedure: US biopsy thyroid EXAMINATION: US biopsy thyroid HISTORY: Thyroid Nodule COMPARISON: Ultrasound thyroid 09-02 TECHNIQUE: After obtaining informed consent, ultrasound-guided fine needle aspiration was performed in the usual sterile manner. FINDINGS: IMAGING: Ultrasound. BIOPSY NEEDLE: 25-gauge; 3 separate passes LOCATION: Right lobe 1.9 cm TR 4 nodule. SPECIMEN TYPE: Cellular tissue. LOCAL ANESTHETIC: Buffered Xylocaine. COMPLICATIONS: None. LABORATORY: Prepared slide smears and washings for cell block evaluation. OTHER: Negative. PATHOLOGY: Pending. An addendum will be added when results are available. US/US biopsy thyroid IMPRESSION: 1. Uneventful ultrasound guided fine needle aspiration (FNA). 2. Pathology results are pending. Electronically authenticated by: SETH BOLDEN Date: 09/17/2024 14:37 Dictated By: Seth Bolden M.D. Signed By: 09/17/24 1440 DD/ 1437 TD/TT: Mirror Department Supervisor: WENCESLAO HealthcareRadiology Study observation (narrative)NOM HealthcareUS BIOPSY THYROIDOrdered By: Radiologist Radiology on 04-55-9644VPAX Healthcare Work Phone: IGP,APTIMA HPV,AGE GDLNon 91-63-9600WIV GDLN ACOG TESTINGNote.[facility] HealthcareComment on above:TESTS RESULT FLAG UNITS REF RANGE LAB Clinician Provided Cytology Information Source.............Cervix;Endocervix No. of containers..01 ThinPrep Vial Age Purnima TARIQ Julieta... 3065 01 FLAG LEGEND: L-Low Normal,H-High Normal,LL-Alert Low,HH-Alert High <-Panic Low,>-Panic High,A-Abnormal,AA-Critical Abnormal Performed at: 01 =[address] [address] Gladys Hudson MD, HPV APTIMANegativeNegativeNOMS HealthcareComment on above:This nucleic acid amplification test detects fourteen high- risk HPV types (16,18,31,33,35,39,45,51,52,56,58,59,66,68) without differentiation. Performed at: =[address] [id number] [employer] Sash [employer] Carpenter: Gladys Hudson MD, Phone: [phone] Performed at: [address] [id number] [employer] S[employer] Carpenter: Gladys Hudson MD, Phone: [phone] IGP, APTIMA HPV, RFX 16/18,45Note.NOMS HealthcareComment on above:TESTS RESULT FLAG UNITS REF RANGE LAB DIAGNOSIS: 02 NEGATIVE FOR INTRAEPITHELIAL LESION OR MALIGNANCY. Specimen adequacy: 02 Satisfactory for evaluation. No endocervical component is identified. Performed by: 02 Carlene Connor, Continuous Process Tanner Rotary Drum (ASCP) . 02 Note: Note 02 The Pap smear is a screening test designed to aid in the detection of premalignant and malignant conditions of the uterine cervix. It is not a diagnostic procedure and should not be used as the sole means of detecting cervical cancer. Both false-positive and false-negative reports do occur. Test Methodology: Note 02 This liquid based ThinPrep(R) pap test was screened with the use of an image guided system. HPV Genotype Reflex Note 02 Criteria not met, HPV Genotype not performed. FLAG LEGEND: L-Low Normal,H-High Normal,LL-Alert Low,HH-Alert High <-Panic Low,>-Panic High,A-Abnormal,AA-Critical Abnormal Performed at: [address] [facility] [address] [address] Gladys Hudson MD, BRUSH-SPATULA CERVIX ENDOCERVIX CLINISYNCNOMS HealthcareUS Thyroid glandon 79-32-5733[place], [place] [address] Ultrasound Report Signed Patient: ROSARIO CHURCHILL MR#: [id number] : 1990 Acct:[id number] Age/Sex: 34 / F ADM Date: 08/11/24 Loc: US Attending Dr: Saniya Johnson M.D. Ordering Physician: Saniya Johnson M.D. Date of Service: 08/11/24 Procedure(s): US thyroid Accession Number(s): [id number] cc: Idania Braun SHEET METAL WELDER; Saniya Johnson M.D. [address] [address] Patient Name: ROSARIO CHURCHILL MRN: [id number] date: 1990 Sex: F Assigned Patient Location: US Current Patient Location: Accession/Order Number: [id number] Exam Date: 08/11/2024 16:26 Report Date: 08/12/2024 08:13 At the request of: SANIYA JOHNSON Procedure: US thyroid EXAMINATION: US thyroid HISTORY: MULTINODULAR GOITER E04.2 COMPARISON: 08/14/2023 TECHNIQUE: Sonographic images of the thyroid gland were obtained. FINDINGS: The right thyroid lobe is heterogeneous in echotexture measuring 5.7 x 2.0 x 2.3 cm. Multiple nodules with a single nodule over 1 cm. The thyroid isthmus measures 1.7 mm. Single subcentimeter nodule The left thyroid lobe is heterogeneous in echotexture measuring 4.6 x 1.1 x 1.6 cm. Multiple subcentimeter nodules. The most suspicious nodule: Right thyroid lobe. 1.9 x 1.6 x 1.7 cm. Mixed solid and cystic, hypoechoic, wide, smooth margins, punctate calcifications. TR 4 US/US thyroid IMPRESSION: Continued increase in size of a now 1.9 cm right thyroid TR 4 nodule. Consider fine-needle aspiration TI-RADS: The [employer] TI-RADS committee's white paper recommendations for thyroid lesions classified as TR4 (moderately suspicious) are listed below: > 1.0 cm. Follow-up ultrasound in 1, 2, 3, and 5 years. > 1.5 cm. FNA. J. Am Cornelius Radiol 2017;14:587-595. Electronically authenticated by: DREW REAL Date: 08/12/2024 08:13 Dictated By: Drew Real M.D. Signed By: 08/12/24815 DD/ 2 TD/TT: Mirror Department Supervisor:REBECCAHRadiology, Radiologist, - 08/12/[address] [address] Ultrasound Report Signed Patient: ROSARIO CHURCHILL MR#: [id number] : 1990 Acct:[id number] Age/Sex: 34 / F ADM Date: 08/11/24 Loc: US Attending Dr: Saniya Johnson M.D. Ordering Physician: Saniya Johnson M.D. Date of Service: 08/11/24 Procedure(s): US thyroid Accession Number(s): [id number] cc: Idania Braun NP; Saniya Johnson M.D. [place] [id number] Patient Name: ROSARIO CHURCHILL MRN: [id number] date: 1990 Sex: F Assigned Patient Location: US Current Patient Location: Accession/Order Number: [id number] Exam Date: 08/11/2024 16:26 Report Date: 08/12/2024 08:13 At the request of: SANIYA JOHNSON Procedure: US thyroid EXAMINATION: US thyroid HISTORY: MULTINODULAR GOITER E04.2 COMPARISON: 08/14/2023 TECHNIQUE: Sonographic images of the thyroid gland were obtained. FINDINGS: The right thyroid lobe is heterogeneous in echotexture measuring 5.7 x 2.0 x 2.3 cm. Multiple nodules with a single nodule over 1 cm. The thyroid isthmus measures 1.7 mm. Single subcentimeter nodule The left thyroid lobe is heterogeneous in echotexture measuring 4.6 x 1.1 x 1.6 cm. Multiple subcentimeter nodules. The most suspicious nodule: Right thyroid lobe. 1.9 x 1.6 x 1.7 cm. Mixed solid and cystic, hypoechoic, wide, smooth margins, punctate calcifications. TR 4 US/US thyroid IMPRESSION: Continued increase in size of a now 1.9 cm right thyroid TR 4 nodule. Consider fine-needle aspiration TI-RADS: The [employer] TI-RADS committee's white paper recommendations for thyroid lesions classified as TR4 (moderately suspicious) are listed below: > 1.0 cm. Follow-up ultrasound in 1, 2, 3, and 5 years. > 1.5 cm. FNA. J. Am Cornelius Radiol 2017;14:587-595. Electronically authenticated by: DREW REAL Date: 08/12/2024 08:13 Dictated By: Drew Real M.D. Signed By: 08/12/24815 DD/ 2 TD/TT: Mirror Department Supervisor: WENCESLAO HealthcareRadiology Study observation (narrative)WENCESLAO AguirreUS Thyroid glandOrdered By: Radiologist Radiology on 78-16-6081RYDLSaint Louis University Hospital Work Phone: cytology Cervical or vaginal smear or scraping studyon 74-89-9818QSPLSaint Louis University HospitalCBC AUTO DIFFon 98-90-5751RAAQ #0.0 103/ulNormal0.0-0.1 [facility] CenterComment on above:Performed By: #### CBC #### [facility] [address] [address] [address] Caden AbdiBasophils/100 WBC (Bld)0.5 %Normal0.2-2.0[facility] Comment on above:Performed By: #### CBC #### [facility] [address] [address] [address] Caden Jeter #0.2 103/ulNormal0.0-0.7The [facility] HospitalComment on above: Performed By: #### CBC #### [facility] [address] [address] [address] Caden Paredesosinophils/100 WBC (Bld)2.7 %Normal0.9-7.0[facility] Comment on above:Performed By: #### CBC #### [facility] [address] [address] [address] Caden Paredesrythrocyte distribution width (RBC) [Ratio]12.3 %Kxeptb69.0-15.0 [facility] CenterComment on above:Performed By: #### CBC #### [facility] [address] [address] [address] Caden AbdiHematocrit (Bld) [Volume fraction]35.0 %Critically low36.0-48.0 [facility] CenterComment on above:Performed By: #### CBC #### [facility] [address] [address] [address] Caden AbdiHemoglobin (Bld) [Mass/Vol]11.8 g/dLCritically low12.0-16.0The [facility] HospitalComment on above:Performed By: #### CBC #### [facility] [address] [place] [address] Dr. Caden Pruett #0.01 10e3/ulNormal0.00-0.03The [facility] HospitalComment on above:Performed By: #### CBC #### [facility] [address] [place] [address] Dr. Caden Pruett %0.2 %Normal0.0-0.5The [facility] HospitalComment on above: Performed By: #### CBC #### [facility] [address] [place] [address] Dr. Caden Lynch #2.2 103/ulNormal1.2-3.8The [facility] HospitalComment on above:Performed By: #### CBC #### [facility] [address] [place] [address] Dr. Caden Lunahocytes/100 WBC (Bld)38.4 %Sdnuul81.5-60.0The [facility] HospitalComment on above:Performed By: #### CBC #### [facility] [address] [place] [address] Dr. Caden HaynesUAL DIFF REQNONormalThe [facility] HospitalComment on above: Performed By: #### CBC #### [facility] [address] [place] [address] Dr. Caden Garcia (RBC) [Entitic mass]30.3 nvZsmkxd25.7-34.0The [facility] HospitalComment on above:Performed By: #### CBC #### [facility] [address] [place] [address] Dr. Caden Garcia (RBC) [Mass/Vol]33.7 g/jWUsjlct53.9-35.2The [facility] HospitalComment on above:Performed By: #### CBC #### [facility] [address] [place] [address] Dr. Caden Garcia (RBC) [Entitic vol]90.0 dWPnxgtu02.0-99.0The [facility] HospitalComment on above:Performed By: #### CBC #### [facility] [address] [place] [address] Dr. Caden Diaz #0.4 103/ulNormal0.3-0.8The [facility] HospitalComment on above:Performed By: #### CBC #### [facility] [address] [place] [address] Dr. Caden Orrocytes/100 WBC (Bld)6.2 %Normal1.7-12.0The [facility] Comment on above:Performed By: #### CBC #### [facility] [address] [place] [address] Dr. Caden Christopher #2.9 103/ulNormal1.4-6.5The [facility] HospitalComment on above:Performed By: #### CBC #### [facility] [address] [place] [address] Dr. Caden Hardyutrophils/100 WBC (Bld)52.0 %Ddxgyc43.0-75.0The [facility] HospitalComment on above:Performed By: #### CBC #### [facility] [address] [place] [address] Dr. Caden Shelton mean volume (Bld) [Entitic vol]9.4 fLCritically low 9.5-13.5The [facility] HospitalComment on above:Performed By: #### CBC #### [facility] [address] [place] [address] Dr. Cdaen JavierT240 103/iaXgcyei454-782Jxd [facility] HospitalComment on above: Performed By: #### CBC #### [facility] [address] [place] [address] Dr. Caden AbdiRBC3.89 106/ulCritically low4.20-5.40The [facility] HospitalComment on above:Performed By: #### CBC #### [facility] [address] [place] [address] Dr. Caden AbdiWBC5.6 103/ulNormal4.0-11.0The [facility] HospitalComment on above: Performed By: #### CBC #### [facility] [address] [place] [address] Dr. Caden Baugh 14(COMP METB)on 71-94-6378Chhhpjx [Mass/Vol]4.0 g/dLNormal 3.4-5.0The [facility] HospitalComment on above:Performed By: #### T4, CMP, TSH #### [facility] [address] [place] [address] Dr. Caden AbdiAlbumin/Globulin [Mass ratio]1.3 {ratio}NormalThe [facility] HospitalComment on above:Performed By: #### T4, CMP, TSH #### [facility] [address] [place] [address] Dr. Caden HeartP [Catalytic activity/Vol]38 U/LCritically hvr44-052Mif [facility] HospitalComment on above:Performed By: #### T4, CMP, TSH #### [facility] [address] [place] [address] Dr. Caden Tran [Catalytic activity/Vol]21 U/JPnbbjq96-11Cfu [facility] HospitalComment on above:Performed By: #### T4, CMP, TSH #### [facility] [address] [place] [address] Dr. Caden Mora gap [Moles/Vol]8.6 mmol/LNormalThe [facility] HospitalComment on above:Performed By: #### T4, CMP, TSH #### [facility] [address] [place] [address] Dr. Caden AbdiAST [Catalytic activity/Vol]13 U/LCritically yqg25-39Vjw [facility] HospitalComment on above:Performed By: #### T4, CMP, TSH #### [facility] [address] [place] [address] Dr. Caden AbdiBilirubin [Mass/Vol]0.4 mg/dLNormal0.2-1.0The [facility] Comment on above:Performed By: #### T4, CMP, TSH #### [facility] [address] [address] [address] Caden AbdiCalcium [Mass/Vol]9.3 mg/dLNormal8.5-10.1The [facility] Comment on above:Performed By: #### T4, CMP, TSH #### [facility] [address] [address] [address] Caden AbdiChloride [Moles/Vol]104 mmol/LKhfhqn68-878Aea [facility] Comment on above:Performed By: #### T4, CMP, TSH #### [facility] [address] [address] [address] Caden AbdiCO2 [Moles/Vol]30.4 mmol/UGiitqy38.0-32.0The [facility] Comment on above:Performed By: #### T4, CMP, TSH #### [facility] [address] [address] [address] Caden AbdiCreatinine [Mass/Vol]0.71 mg/dLNormal0.55-1.02The [facility] HospitalComment on above:Performed By: #### T4, CMP, TSH #### [facility] [address] [address] [address] Caden ParedesGFR-AF UKRAINIAN>60Normal>=60The [facility] HospitalComment on above:Performed By: #### T4, CMP, TSH #### [facility] [address] [address] [address] Caden Bermudez-NON AF UKRAINIAN>60Normal>=60The [facility] HospitalComment on above:Performed By: #### T4, CMP, TSH #### [facility] [address] [address] [address] Caden AbdiGlobulin (S) [Mass/Vol]3.2 g/dLNormalThe [facility] HospitalComment on above:Performed By: #### T4, CMP, TSH #### [facility] [address] [address] [address] Caden AbdiGlucose [Mass/Vol]77 mg/iZRcjxpv65-259Qms [facility] Comment on above:Performed By: #### T4, CMP, TSH #### [facility] [address] [address] [address] Caden AbdiPotassium [Moles/Vol]4.0 mmol/LNormal3.5-5.1The [facility] Comment on above:Performed By: #### T4, CMP, TSH #### [facility] [address] [place] [address] Dr. Caden AbdiProtein [Mass/Vol]7.2 g/dLNormal6.4-8.2The [facility] Comment on above:Performed By: #### T4, CMP, TSH #### [facility] [address] [place] [address] Dr. Caden Kesslerdium [Moles/Vol]139 mmol/AEhboxa931-116Xgr [facility] Comment on above:Performed By: #### T4, CMP, TSH #### [facility] [address] [place] [address] Dr. Caden AbdiUrea nitrogen [Mass/Vol]19.0 mg/dLCritically high7.0-18.0[facility] HospitalComment on above:Performed By: #### T4, CMP, TSH #### [facility] [address] [place] [address] Dr. Caden Farah nitrogen/Creatinine [Mass ratio]26.8 mg/mgNormalThe [facility] HospitalComment on above:Performed By: #### T4, CMP, TSH #### [facility] [address] [place] [address] Dr. Caden Rios 11-19-3118R2 [Mass/Vol]6.80 ug/dLNormal4.80-13.90The [facility] HospitalComment on above:Performed By: #### T4, CMP, TSH #### [facility] [address] [place] [address] Dr. Caden Harp 06-62-4871UCU9.303 uIU/mLNormal0.358-3.740The [facility] HospitalComment on above:Performed By: #### T4, CMP, TSH #### [facility] [address] [address] [address] Caden Davis THYROIDon 54-29-7822AU THYROIDEXAMINATION: US THYROID HISTORY: Non-toxic multinodular goiter COMPARISON: [...] cm, fine needle aspiration. Electronically authenticated by: SETH BOLDEN Date: 2022-08-27 13:08[facility] CenterCoding Summary.on 01-82-1480Esmelm Summary.CODING DATE: 10/17/2020 FINAL [facility] STATUS: Home (Routine DC) PAYOR: [facility] [place] ADMIT DX: REASON FOR VISIT DX: Z20.828 [...] Myah Llanos CphT Date Saved: 10/17/2020 05:46 [facility]ARS[facility], CARLOS on 89-06-2932TGMY CORONAVIRUS 2 RNA:PRTHR:PT:RESPIRATORY:ORD:PROBE.AMP.TARNot DetectedNot DetectedScci Hospital LimaComment on above:Result Comment: This nucleic acid amplification test was developed and its performance characteristics determined by [facility]. Nucleic acid amplification tests include PCR and [...] detected) result in this assay. Performed at: [employer] (acquired by [employer])[facility] [address] [facility] [place] [id number] MD Foley AnaghPerformed By: #### SARS-CoV-2, CARLOS #### [facility] [address] [place], [place] [address]Epwhtsydj Orderon 00-30-4756Xgteafvze Order [id number]#1.00CD:127NormalScci Hospital Lima Vital Signs Date TimeVital SignValuePerforming NgzeeptzfSlkzpgzl56-73-3672 13:27-0500Body xodxng767.7 cmSaniya Johnson MD Work Phone: [place] [facility] HospitalHwoqawfwjk26-62-4030 13:27-0500Body mass index (BMI) [Ratio]24.33 kg/h5HjgggqSaniya Johnson MD Work Phone: [phone] [place], [place] [address]Byqtyyohhd85-81-7734 13:27-0500Body jjimyc85.58 kgSaniya Johnson MD Work Phone: [place] [facility] HospitalEpyxaocgsb84-22-2859 13:27-0500Diastolic blood mkpcrjob47 mm[Hg]Saniya Johnson MD Work Phone: [place] [facility] HospitalWlenxgjaka32-10-0181 13:27-0500Systolic blood ltuahumi210 mm[Hg]Saniya Johnson MD Work Phone: 1(909)[facility]-[address] [place], [place] [address]Bdafpfvikk76-13-1854 13:23-0400Body ocaeve357.7 cmSaniya Johnson MD Work Phone: [place] [facility] HospitalFoqaokgdtf58-85-6749 13:23-0400Body mass index (BMI) [Ratio]24.33 kg/n2RuxmhoSaniya Johnson MD Work Phone: [place] [facility] HospitalGowrxhcfzn96-08-6174 13:23-0400Body opqbwq41.58 kgSaniya Johnson MD Work Phone: 1([phone])398-[address] [place], [place] [address]Zmpljxgdop24-69-0218 13:23-0400Diastolic blood evsfzdia28 mm[Hg]Saniya Johnson MD Work Phone: [place] [facility] HospitalMetiqqwpyn28-00-4707 13:23-0400Systolic blood wefgttnr335 mm[Hg]Saniya Johnson MD Work Phone: [place] [facility] HospitalOzvmnqounb69-41-0947 09:25-0400Body mass index (BMI) [Ratio]24.02 kg/m2Tamera VALENCIA Work Phone: 1([phone])304-[address] [place], [place] [address]Ivgstkbvya28-93-6807 09:25-0400Body ayymsz63.67 kgTamera VALENCIA Work Phone: [phone] [place], [place] [address]Tlawgjamyf97-55-8619 09:25-0400Diastolic blood volxzqzq58 mm[Hg]Tamera VALENCIA Work Phone: 1([phone])411-[address] [place], [place] [address]Bxmwpmutmo54-75-4764 09:25-0400Systolic blood bkwlvani585 mm[Hg]Tamera VALENCIA Work Phone: [phone] [place] [address]-09-2024 16:05-0400Body hhzsyx759.7 Dontae Braun SHEET MET[employer] W[employer]DER Work Phone: noWashington [facility] Medical CenterDskkarcpcp67-63-3557 16:05-0400Body mass index (BMI) [Ratio]23.93 kg/m2Idania Braun SHEET MET[employer] WELDER Work Phone: noWashington [facility] CenterGgojnvjatd81-55-2770 16:05-0400Body temperature 98.1 [degF]Idania Braun [employer] W[employer]DER Work Phone: no[facility] CenterOopcngnkcg94-76-6084 16:05-0400Body .4 kg Idania Braun SHE[employer] MET[employer] W[employer]DER Work Phone: no[facility] CenterGjpiiahcma22-54-2095 16:05-0400Diastolic blood ejjrvtkr68 mm[Hg]Idania Braun [employer] MET[employer] W[employer] Work Phone: no[facility] Medical CenterIufaaxmkql12-56-8863 16:05-0400Heart rate62 /min Idania Braun SHE[employer] MET[employer] W[employer]DER Work Phone: no[facility] CenterOtgvxduekn50-51-9089 16:05-0400Respiratory rate18 /minIdania Braun SHEET MET[employer] WELDER Work Phone: no[facility] CenterLpgxldsweb98-10-9546 16:05-1502YzI9% (BldA) [Mass fraction]99 %Idania Braun SHE[employer] MET[employer] W[employer]DER Work Phone: noWashington [facility] Medical CenterJtwgqiukod54-77-8724 16:05-0400Systolic blood iliwjgci710 mm[Hg]Idania Braun SHE[employer] MET[employer] W[employer]DER Work Phone: [facility] Encounters Encounter DateEncounter TypeCare ProviderFacilityStart: 04-06-2025 End: 46-46-6098LjhjzwHwwp Aichholz SHE[employer] W[employer]DER Work Phone: [facility] CWM FMComment on above:Lumbar back painStart: 03-09-2025 End: 18-16-4930Lcpkvk outpatient new 30 [facility]Dor[facility] Jose [facility] ERIK Work Phone: [facility] SWS DERMComment on above:Melanocytic nevus of trunk (Primary Dx); Melanocytic nevus of left lower extremity; DermatofibromaStart: 03-09-2025 End: 84-35-7786fpyssharcnFYJMH [facility] REHABMNot AvailableStart: 03-09-2025 End: 89-38-4219Unejps flowsheetRylee [facility] PA Work Phone: [facility] SWS DERMStart: 03-09-2025 End: 19-64-7421Fsmqqa flowsheetRySoutheast [facility] PA Work Phone: [facility] SWS DERMStart: 03-08-2025 End: 82-16-8546Tszffv Boy Braun SHEET MET[employer] WELDER Work Phone: [facility] CWM FMComment on above:Neoplasm of uncertain behavior (Primary Dx)Start: 10-12-2024 End: 82-52-7820Ddkjgh Dylan Johnson MD Work Phone: [facility] CI ENTStart: 10-12-2024 End: 68-55-1081Mvbzjw Dylan Johnson MD Work Phone: [facility] CI ENTStart: 10-12-2024 End: 66-97-6023Xhkdsn outpatient visit 15 minutesSaniya Johnson MD Work Phone: [facility] CI ENTComment on above:Thyroid nodule (CMS/HCC) (Primary Dx)Start: 10-12-2024 End: 40-01-9102sqlrmgvuseMSVZXT H TIMMISNot AvailableStart: 09-17-2024 End: 46-25-8681Foryifbxi Result EncounterGeneric External Data ProviderNOMS External Department UnsolicitedStart: 09-17-2024 End: 17-59-2368Abdqhuwtx Result EncounterGeneric External Data ProviderNOMS External Department UnsolicitedStart: 09-07-2024 End: 33-00-4407Duxcdk Dylan Johnson MD Work Phone: [facility] CI ENTStart: 09-07-2024 End: 28-01-1959Xxnkgy Dylan Johnson MD Work Phone: [facility] CI ENTStart: 09-07-2024 End: 22-15-9432Yobesh outpatient visit 25 minutesSaniya Johnson MD Work Phone: [facility] CI ENTComment on above:Multinodular goiter (CMS/HCC) (Primary Dx)Start: 09-07-2024 End: 64-26-3244tahbsxtxjkQDLXJD H TIMMISNot AvailableStart: 09-06-2024 End: 98-75-5847Pzkqmf flowsFaheem VALENCIA Work Phone: [facility] BCP OBStart: 09-06-2024 End: 30-94-7948Tfrzdn flowsFaheem VALENCIA Work Phone: [facility] BCP OBStart: 09-06-2024 End: 70-78-6458Oidchftxn Result EncounterGeneric External Data ProviderNOMS External Department UnsolicitedStart: 09-06-2024 End: 49-82-1887Mccycoo encounter procedureTamera VALENCIA Work Phone: [facility] Work Phone: Start: 09-06-2024 End: 31-63-6136Ghlmcwbm preventive med est patient 18-39 yrsTamera VALENCIA Work Phone: [facility] BCP OBComment on above:Well woman exam with routine gynecological examStart: 09-06-2024 End: 02-57-5990werhenuounXNJ MATTNot AvailableStart: 08-18-2024 End: 50-40-7576xemrrmajjqJYVF AICHHOLZNot AvailableStart: 08-18-2024 End: 14-34-5657Noszlp outpatient visit 15 minutesLisa Kade SHEET MET[employer] WELDER Work Phone: [facility] CWM FMComment on above:Acute non-recurrent maxillary sinusitis (Primary Dx); Lumbar back painStart: 08-18-2024 End: 54-02-3937Snqubr flowsheetLisa Aichholz [employer] W[employer]DER Work Phone: [facility] CWM FMStart: 08-18-2024 End: 57-34-1122Nolzvs Matheus Braun SHE[employer] MET[employer] WELDER Work Phone: NOGT CWM FMStart: 08-12-2024 End: 62-51-4526Uknwcgiua Result EncounterGeneric External Data ProviderNOMS External Department UnsolicitedStart: 08-12-2024 End: 63-42-6579Kdtsxzdty Result EncounterGeneric External Data ProviderNOMS External Department UnsolicitedStart: 09-27-2022 End: 51-66-2071mkavkvmqolNJ HOWARD HOUSEFacility:S4Xecod: 08-26-2022 End: 35-54-4839syhqpexibmEU SANIYA TIMMISFacility:H1 Procedures DateProcedureProcedure DetailPerforming ClinicianStart: 01-15-1451YG BIOPSY THYROIDGeneric External Data ProviderStart: 22-43-7366UCM,APTIMA HPV,AGE GDLNTamera VALENCIA Work Phone: Start: 71-67-2766Jijdletklgf observation [Identifier] in Cervix by Cyto stainSaniya Johnson MD Work Phone: Start: 50-07-9763Ai soft tissue head & neck real time imge docmGeneric External Data ProviderStart: 60-63-2807Hskmfkjmasl observation [Identifier] in Cervix by Cyto stainTamera VALENCIA Work Phone: Start: 77-06-9751Tuku cerv/vag auto thin layer prep mnl screenTamera VALENCIA Work Phone: Plan of Treatment DateCare ActivityDetailAuthorStart: 20-19-7562Brlrysdny for malignant neoplasm of cervixNOMS HealthcareStart: 56-66-3923Yapcoctbp for malignant neoplasm of cervixPap SmearNOMS HealthcareStart: 09-12-2025 End: 53-36-2032Pjgnvlc encounter procedureNOMS BCP OBStart: 03-09-2025 End: 85-21-1416Srkbzmt encounter bxxqeohhr31/30/2025 3:10 PM EDT Office Visit [facility] [address] [place] [address] Charles Elias PA [address] [place] [address] Neoplasm of uncertain behaviorNOMS SWS DERMComment on above:Neoplasm of uncertain behaviorStart: 10-12-2024 End: 45-78-2666Tpenokz encounter /03/2024 1:30 PM EST Office Visit [facility] [address] [facility] [address] [place] [address] Saniya Johnson MD [address] [facility] [address] [place] [address] ArrivedNOMS CI ENTComment on above:ArrivedStart: 09-22-2024 End: 55-65-1352Ixyifku encounter koqxtkhrb83/13/2024 2:30 PM EST Procedure Visit [facility] OB [address] [place] [address] Marty Armstrong, DO [address] [place] [address] [facility] BCP OBStart: 09-07-2024 End: 40-39-3635Xbgiyyq encounter procedureNOMS CI ENTComment on above:Arrived Start: 09-06-2024 End: 27-30-4750Bjmmfaz encounter procedureNOMS BCP OBComment on above:Arrived Start: 77-62-3381Vaekrvvin vaccinationInfluenza Vaccine (#1)[facility] Healthcare Start: 76-46-4309Tauzltnfg for malignant neoplasm of cervixNOMS HealthcareStart: 95-92-2799Xbvbwyqqk for malignant neoplasm of cervixPap SmearNODE Healthcare Cytology Cervical or vaginal smear or scraping studyPap Smear Pathology and Cytology Routine Well woman exam with routine gynecological exam Ordered: [facility] Work Phone: comment on above:Ordered: 09/06/2024Human papilloma virus DNA [Presence] in Unspecified specimen by Probe with amplificationHPV DNA probe, amplified Microbiology Routine Well woman exam with routine gynecological exam Ordered: 09/06/2024[facility] HealthcareComment on above:Ordered: 09/06/2024 Immunizations Immunization DateImmunizationNotesCare SmusfrygAjcdzaje00-23-4721vfbdnpmiz virus vaccine, unspecified formulationSaniya Johnson MD Work Phone: noWashington [facility] Medical CenterKlbtbyamgm75-55-9593pkkoyjfux, injectable, quadrivalent, preservative freeLisa Aichholz SHEET [employer] WELDER Work Phone: [place] [facility] HospitalWuispzgrcm81-02-8228ewhxjeolh virus vaccine, unspecified formulationLisa Aichholz SHEET METAL WELDER Work Phone: [place] [facility] HospitalAvtxqrysss36-07-7965kmxoilzqf, injectable, quadrivalent, preservative freeLisa Aichholz SHEET METAL WELDER Work Phone: [place] [facility] HospitalUrjbudxxcs39-35-3508flzzswspf, injectable, quadrivalent, preservative freeLisa Aichholz SHEET METAL WELDER Work Phone: [facility] Payers DatePayer CategoryPayerPolicy [id number] Health InsuranceMEDICAL MUTUAL [id number] VOLGA [employer] [id number] 2020- [address] [place] [id number] [id number] 2..840.1.185150.3.57[id number] 2.16.840.1.007256.3.57[id number] 2..0.1.819923.3.57[id number] 2..840.1.034424.3.57[id number] 2.0.1.637223.3.57[id number] Social History DateTypeDetailFacilityStart: 61-77-6547Ktaqaby smoking status NHISNever smoked tobaccoNOMS HealthcareStart: 38-47-5015Rhqmapl use and exposureSmokeless tobacco non-userNOMS HealthcareStart: 08-27-2023 End: 24-81-3651Qftbxbrgq beverage intakeLifetime non-drinker (finding)[facility] HealthcareStart: 08-27-2023 End: 83-91-7543Naafiby of Social functionNOMS HealthcareStart: 08-27-2023 End: 68-63-0440Kvjxemo use panelNOMS HealthcareStart: 84-59-0464Qfouvrf Comment Caffeine intake: 1-2 cups per dayNOMS HealthcareStart: 58-66-7800Vbz assigned at birthFemaleNODE HealthcareStart: 57-72-9926Tnwaea identityIdentifies as female gender (finding)[facility] HealthcareStart: 62-07-0504Fjpttk orientationHeterosexual (finding)[facility] HealthcareStart: 73-16-1352Jmw often do you need to have someone help you when you read instructions, pamphlets, or other written material from your doctor or pharmacy [SILS]NeverNOMS HealthcareDo you belong to any clubs or organizations such as synagogue groups, unions, fraternal or athletic groups, or school groups?NoNOMS HealthcareAre you now , , , , never or living with a partner?MarriedNOMS HealthcareHow often to you have a drink containing alcohol?Monthly or lessNOMS HealthcareHow many standard drinks containing alcohol do you have on a typical day?3 or 4NOMS HealthcareHow often do you have 6 or more drinks on 1 occasion?NeverNOMS HealthcareDo you feel stress - tense, restless, nervous, or anxious, or unable to sleep at night because yourmind is troubled all the time - these days [OSQ] Not at allNODE Healthcare(I/We) worried whether (my/our) food would run out before (I/we) got money to buy more.Never trueNOWashington University Medical Center Functional Status NkieJlpwwzkgdaQhxvyvEybocief67-34-5415Slbcb score [AUDIT-C]2 08/18/2024 11:48 AM EDT Octavianland o'lakes, GenericSaint [place] University HospitalCilzdsgrwv71-04-7897Cmh often do you have a drink containing alcohol?Monthly or less 08/18/2024 11:48 AM EDT Rotten Tomatoest, Generic Monthly or lessNOWashington University Medical CenterHuiarwxyvl72-24-0734Bwh many standard drinks containing alcohol do you have on a typical day?3 or 4 08/18/2024 11:48 AM EDT Octavianhart, Generic 3 or 4NOWashington University Medical CenterGieavtseut83-47-9171Iyf often do you have 6 or more drinks on 1 occasion?Never 08/18/2024 11:48 AM EDT Octavian[place] [employer]'lakes, Generic NeverSaint [facility] Clinical Notes 08-18-2024 to 03-09-2025 Note Date & LkwaWnymOrlpoknd11-42-2994 History of Present illness Narrative* ERIK Cortez - 03/09/2025 3:10 PM EDT Lesion #1: Location: left thigh Duration: years Quality: denies pain, denies itch, denies bleeding Associated symptoms: non-healing Treatments: none Lesion #2: Location: inner left thigh Duration: years Quality: denies pain, denies itch, denies bleeding Associated symptoms: non-healing Treatments: none Lesion #3 Location: abdomen Duration: years Quality: denies pain, denies itch, denies bleeding Associated symptoms: non-healing Treatments: none New patient All pertinent medical history, medications, and allergies were reviewed. General Exam: alert, oriented to person, place, and time, normal affect, well appearing Unaccompanied A focused exam completed based on patient reported problems, see below: Skin Exam 1. MELANOCYTIC NEVUS OF TRUNK Trunk Scattered benign appearing, regular brown to light brown melanocytic papules and macules with similar morphology Counseled regarding these benign growths. Rarely, a nevus can develop into malignant melanoma, so any changing nevi should be promptly re-evaluated. Related Procedures Ambulatory referral to Dermatology 2. MELANOCYTIC NEVUS OF LEFT LOWER EXTREMITY Left Medial Thigh Scattered benign appearing, regular brown to light brown melanocytic papules and macules with similar morphology Counseled regarding these benign growths. Rarely, a nevus can develop into malignant melanoma, so any changing nevi should be promptly re-evaluated. 3. DERMATOFIBROMA Left Thigh - Anterior Firm brown papule that dimples with lateral pressure. Discussed that these are benign scars on the skin. If lesion is changing/symptomatic, return to office to have lesion re-evaluated Next Visit: Recommend FBSE documented in this [facility]04-29-2025 History of Present illness Narrative* Idania Braun NP - 03/08/2025 8:13 AM EDTAssociated Problem(s): Neoplasm of uncertain behavior Here at appt with , asked about looking at skin lesion on abd area Approx 5-6mm, color variation, no ulcerations documented in this [facility]12-03-2024 History of Present illness Narrative* Saniya Johnson MD - 10/12/2024 1:30 PM EST Subjective Patient ID: Rosario Churchill is a 34 y.o. female who presents for Thyroid Nodule (Follow up FNA 09/20/24) FNA path shows a [place] 2 nodule. Family History Problem Relation Name [...] FNA. Resume annual US documented in this encounterSaint Louis University HospitalOcjcnfuswc16-13-4760 History of Present illness Narrative* Saniya Johnson MD - 09/07/2024 1:30 PM EDT Subjective Patient ID: Rosario Churchill is a 34 y.o. female who presents for Thyroid Nodule (Follow up Ultrasound [facility] 08/12/24) US shows a 17f56p77oz TR4 nodule compared to 22c64x89fd a year ago Family History Problem Relation Name Age of [...] tablet Take 180 mg by mouth Daily ibuprofen 800 MG tablet Take 1 tablet (800 mg) by mouth every 8 (eight) hours if needed for moderate pain 90 tablet 1 Misc Natural Products (FIBER 7 PO) Take 1 each by mouth in the morning. Multiple Vitamins-Minerals (WOMENS DAILY FORMULA PO) Take 1 each by mouth in the morning. No current facility-administered medications on file prior to visit. Objective Last Recorded Vitals Vitals: 09/07/24 1323 BP: 115/67 ENT Physical Exam Constitutional Appearance: patient appears well-developed, well-nourished and well-groomed, Communication/Voice: communication appropriate for developmental age; vocal quality normal; Assessment/Plan Diagnoses and all orders for this visit: Multinodular goiter (CMS/HCC) Very slow gradual growth of dominant right thyroid nodule. I will arrange for an US-guided FNA documented in this encounterSaint Louis University HospitalZlfntfbsmm77-80-7023 History of Present illness Narrative* ERIK Christensen - 09/06/2024 9:00 AM EDT Reason for Appointment: Patient ID: Rosario Churchill is a 34 y.o. female who presents [...] nursing note reviewed. Exam conducted with a lining cementer present. Vitals: Estimated body mass index is [...] info on mirena and kapil. Patient will schedulewhen she decides which she wishes to do. We discussed both options and stated mirena probably most beneficial at this time. Pap was obtained without difficulty. Orders Placed This Encounter Procedures HPV DNA probe, amplified Follow Up: Patient is to return in one year for annual unless needed otherwise. Documented by Daya Anand LPN on behalf of: ERIK Christensen documented in this encounterSaint Louis University HospitalFsidgluxwo93-05-5781 History of Present illness Narrative* Idania Braun NP - 08/18/2024 4:43 PM EDTAssociated Problem(s): Lumbar back pain Chronic lumbar back pain Hx of lumbar fusion Uses Ibuprofen PRN * Idania Braun NP - 08/18/2024 4:38 PM EDTAssociated Problem(s): Acute non- recurrent maxillary sinusitis Doxy BID for 10 days Tessalon prn for cough Fluids, rest, fu if not better * HONG WILKINS - 08/18/2024 4:00 PM EDT Pt started having symptoms last Wednesday 08/08 [...] flu congestion every 4hrs and IBU prn * Idania Braun NP - 08/18/2024 4:00 PM EDT Images from the original note were not included. Rosario Churchill is a 34 y.o. female presents with [...] Negative for abdominal pain, blood in stool, constipation,nausea and vomiting. Genitourinary: Negative for difficulty urinating, [...] ibuprofen 800 MG tablet documented [facility] encounterL[facility] HealthcareEvaluation [facility]* Diagnosis Acute non-recurrent maxillary sinusitis- Primary Lumbar back pain Lumbago documented in this encounter [facility] HealthcareEvaluation note* Diagnosis Acute non-recurrent maxillary sinusitis- Primary Lumbar back pain Lumbago Well woman exam with routine gynecological exam Routine gynecological examination documented in this encounter [facility] HealthcareEvaluation note* Diagnosis Acute non-recurrent maxillary sinusitis- Primary Lumbar back pain Lumbago Multinodular goiter (CMS/HCC)- Primary Nontoxic multinodular goiter documented in this encounter [facility] HealthcareEvaluation [facility]* Diagnosis Acute non-recurrent maxillary sinusitis- Primary Lumbar back pain Lumbago Thyroid nodule (CMS/HCC)- Primary Nontoxic uninodular goiter documented in this encounter [facility] HealthcareEvaluation [facility]* Diagnosis Acute non-recurrent maxillary sinusitis- Primary Lumbar back pain Lumbago Neoplasm of uncertain behavior- Primary Neoplasm of uncertain behavior, site unspecified documented in this encounter [facility]Evaluation [facility]* Diagnosis Acute non-recurrent maxillary sinusitis- Primary Lumbar back pain Lumbago Neoplasm of uncertain behavior- Primary Neoplasm of uncertain behavior, site unspecified Melanocytic nevus of trunk- Primary Benign neoplasm of skin of trunk, except scrotum Melanocytic nevus of left lower extremity Dermatofibroma Benign neoplasm of skin, site unspecified documented in this encounter [facility] HealthcareEvaluation [facility]* Diagnosis Acute non-recurrent maxillary sinusitis- Primary Lumbar back pain Lumbago Neoplasm of uncertain behavior- Primary Neoplasm of uncertain behavior, site unspecified Lumbar back pain Lumbago documented in this encounter [facility] Summary Purpose Family History No Family History Records FoundNo Family History Records FoundNo Family History Records Found Advance Directives No Advanced Directives Records FoundNo Advanced Directives Records FoundNo Advanced Directives Records Found Additional Source Comments INFORMATION SOURCE (unrecogn ized section and content) DATE CREATED AUTHOR 10/18/2020 [facility] DATE CREATED AUTHOR AUTHOR'S ORGANIZ ATION 10/02/2022 [facility] DATE CREATED AUTHOR AUTHOR'S ORGANIZ ATION 03/14/2025 [facility] EPIC Care Teams (unrecognized sec tion and content) Team MemberRelationshipSpecialtyStart DateEnd Date Jose Antonio Rodriguez MD [address] [place] [address] PCP - GeneralFamily Aogniiwf82/9/24 Idania Braun NP [address] [place] [address] Nurse PractitionerFamily Medicine08/06/24 Idania Braun NP [address] [place] [address] [facility] Ebfikzik42/9/24Team MemberRelationshipSpecialtyStart DateEnd Date Jose Antonio Rodriguez MD [address] [place] [address] [facility] - [facility] Xtfntjsg49/9/24 Idania Braun NP [address] [place] [address] [facility]08/06/24 Idania Braun NP [address] [place] [address] [facility]08/18/24Team MemberRelationshipSpecialtyStart DateEnd Date Jose Antonio Rodriguez MD [address] [place] [address] PCP - [facility]08/18/24 Idania Braun NP [address] [place] [address] [facility]08/06/24 Idania Braun NP [address] [place] [address] [facility]08/18/24Team MemberRelationshipSpecialtyStart DateEnd Date Jose Antonio Rodriguez MD [address] [place] [address] PCP - GeneralFamily Rnljrofz00/9/24 Idania Braun NP [address] [place] [address] Nurse PractitionerClarinda [facility] Centerly Medicine08/06/24 Idania Braun NP [address] [place] [address] [facility] Tectdxar49/9/24Team MemberRelationshipSpecialtyStart DateEnd Date Jose Antonio Rodriguez MD [address] [place] [address] [facility] - [facility] Telvvxmd01/9/24 Idania Braun NP [address] [place] [address] [facility]08/06/24 Idania Braun NP [address] [place] [address] [facility]08/18/24Team MemberRelationshipSpecialtyStart DateEnd Date Jose Antonio Rodriguez MD [address] [place] [address] [facility] - [facility] Llgiswus39/9/24 Idania Braun NP [address] [place] [address] Nurse PractitionerFamily Medicine08/06/24 Idania Braun NP [address] [place] [address] [facility]08/18/24Team MemberRelationshipSpecialtyStart DateEnd Date Jose Antonio Rodriguez MD [address] [place] [address] [facility] - [facility] Rnmzabkg32/9/24 Idania Braun NP [address] [place] [address] [facility]08/06/24 Idania Braun NP [address] [place] [address] Nurse [facility]08/18/24Team MemberRelationshipSpecialtyStart DateEnd Date Jose Antonio Rodriguez MD [address] [place] [address] PCP - [facility] Fcbbwolu66/9/24 Idania Braun NP [address] [place] [address] Nurse [facility]08/06/24 Idania Braun NP [address] [place] [address] [facility]08/18/24Team MemberRelationshipSpecialtyStart DateEnd Date Jose Antonio Rodriguez MD [address] [place] [address] [facility] - [facility] Brnjxvte96/9/24 Idania Braun NP [address] [place] [address] [facility]08/06/24 Idania Braun NP [address] [place] [address] [facility]08/18/24Team MemberRelationshipSpecialtyStart DateEnd Date Jose Antonio Rodriguez MD [address] [place] [address] PCP - [facility]08/18/24 Idania Braun NP [address] [place] [address] [facility]08/06/24 Idania Braun NP [address] [place] [address] [facility]08/18/24Team MemberRelationshipSpecialtyStart DateEnd Date Jose Antonio Rodriguez MD [address] [place] [address] PCP - [facility]08/18/24 Idania Braun NP [address] [place] [address] Nurse PractitionerFamily Medicine08/06/24 Idania Braun NP [address] [place] [address] [facility] Echhrzvr57/9/24Team MemberRelationshipSpecialtyStart DateEnd Date Jose Antonio Rodriguez MD [address] [place] [address] PCP - Generalmily Gzlvsafu83/9/24 Idania Braun NP [address] [place] [address] [facility] Medicine08/06/24 Idania Braun NP [address] [place] [address] [facility]08/18/24Team MemberRelationshipSpecialtyStart DateEnd Date oJse Antonio Rodriguez MD PCP - Generalmily Fdoqdhrs98/9/24 Idania Braun NP [facility] Medicine08/06/24 Idania Braun NP [facility] Sgwrdfwd77/9/24Team MemberRelationshipSpecialtyStart DateEnd Date Jose Antonio Rodriguez MD PCP - GeneralFamily Shiyuyzm29/9/24 Idania Braun NP Nurse PractitionerFamily Medicine08/06/24 Idania Braun NP Nurse PractitionerFametropolitan state hospital Ownaabyf80/9/24 Reason for Visit (unrecogniz ed section and content) ReasonCommentsWell Women VisitReasonCommentsThyroid NoduleFollow up Ultrasound [facility] 08/12/24ReasonCommentsThyroid NoduleFollow up [facility] 09/20/24ReasonComments Suspicious Skin LesionSpecialtyDiagnoses / ProceduresReferred By ContactReferred To ContactDermatology Diagnoses Neoplasm of uncertain behavior Procedures SC OFFICE/OUTPATIENT NEW HIGH MDM 60 MINUTES Idania Braun NP [address] [place] [address] Phone: tel: fax: Charles Elias PA [address] [address] Phone: tel: fax: Referral IDStatusReasonStart DateExpiration DateVisits RequestedVisits [id number] Specialty Services Required 1ReasonOnset DateCommentsMed Tbfaxp0204/06/2025 FOR RECORDS PERTAINING TO PATIENTS WHO ARE [...] BE BASED ON THE PRIMARY CLINICAL RECORDS. [email or web address] [facility]. provides no warranty or guarantee of the accuracy or completeness of information in this document.
== END 2025-09-21 17:04 | disposition home or self-care (01) ==
LOC: US 17:03
PROVIDERS: PCP Nurse Practitioner; Visit Provider Otolaryngology
DX: E04.2 Nontoxic multinodular goiter (principal)
CPT/HCPCS: 76536

== ENCOUNTER 2025-10-13 19:15 | Outpatient (REF) | payer OTHER, SELFPAY ==
--- OUTSIDE RECORDS SUMMARY | 2025-10-13 19:19 | XMS_ITS | CCD ---
Author Organization [facility] Care Team Providers Care Sanitation Worker Cleaning Equipment Name Role Phone ELIZABETH, DR HELMS Admitting Unavailable TIMMIS, DR HELMS Attending Unavailable HOUSE, DR CASTILLO Primary Care Unavailable TIMMIS, DR HELMS Consulting Unavailable Jitendraebdoni, DR Ann Consulting Unavailable HOUSE, DR CASTILLO Admitting Unavailable HOUSE, DR CASTILLO Attending Unavailable HOUSE, DR CASTILLO Primary Care Unavailable HOUSE, DR CASTILLO Consulting Unavailable Aichholchuy PATHOLOGY LABORATORY AIDE, Idania Unavailable Jose Antonio Rodriguez MD Primary Care Provider Kade PATHOLOGY LABORATORY AIDE, Idania Unavailable CHARLES ELIAS Attending Unavailable AICHHOLZ, IDANIA Referring Unavailable AICHHOLZ, IDANIA Attending Unavailable TAMERA GUTIERREZ Attending Unavailable TIMMIMimi, SANIYA Pompa Attending Unavailable AICHHOLZ, IDANIA Referring Unavailable TIMMIS, SANIYA H Attending Unavailable NADFLAVIO, JOSE ANTONIO Referring Unavailable Aichholz PATHOLOGY LABORATORY AIDE, Idania Unavailable Jose Antonio Rodriguez MD Primary Care Provider [phone] Kade PATHOLOGY LABORATORY AIDE, Idania Unavailable Allergies Allergy ClassificationReported Allergen(s)Allergy TypeDate of OnsetReaction(s) Facility (1 source)PenicillinDrug AllergyThe [facility] Rep[facility] (20 sources)Penicillin GDrug Shzocgg47-23-1564FjdoLDSD Healthcare (20 sources)OtherPropensity to adverse xhscpoubm39-57-7399FubejfdKBOC Healthcare Medications Current Medications MedicationDrug Class(es)DatesSig (Normalized)Sig (Original)benzonatate 200 mg oral capsule (2 sources)Non-narcotic AntitussiveStart: 08-18-2024 End: 89-81-1082ltfn 1 capsule by mouth three times daily [...] oral tablet (2 sources)Tetracycline-class DrugStart: 08-18-2024 End: 40-49-9290vmibqcvalia (Vibra-Tabs) 100 MG tablet Indications: Acute non- [...] tablet (13 sources)Nonsteroidal Anti-inflammatory DrugStart: 04-06-2025 End: 98-71-6791hmeu 1 tablet by mouth every eight hours for painibuprofen 800 MG tablet Indications: Lumbar back pain Take 1 tablet (800 mg) by mouth every 8 (eight) hours if needed for moderate pain 90 tablet 1 04/06/2025 05/06/2025 ActiveStart: 08-18-2024 End: 52-81-9775aerh 1 tablet by mouth every eight hours for painibuprofen 800 MG tablet Indications: Lumbar back pain Take 1 tablet (800 mg) by mouth every 8 (eight) hours if needed for moderate pain 90 tablet 1 08/18/2024 09/17/2024 ActiveStart: 07-28-2023 End: 60-95-7331ibfj 1 tablet by mouth every six hours [...] tablet (3 sources)Histamine-1 Receptor AntagonistStart: 03-02-2024 End: 21-49-1171bvkc 1 tablet by mouth once dailycetirizine (ZyrTEC) 10 MG tablet Indications: Environmental and seasonal allergies Take 1 tablet (10 mg) by mouth Daily 30 tablet 3 03/02/2024 08/18/2024 Discontinued (Ineffective)triamcinolone acetonide 0.055 mg/actuat metered dose nasal spray (3 sources)CorticosteroidStart: 03-02-2024 End: 05-72-0460elkn 2 spray(s) nasal route once dailytriamcinolone (Nasacort) 55 MCG/ACT nasal inhaler Indications: Environmental and seasonal allergies Administer 2 sprays into each nostril Daily 16.5 g 3 03/02/2024 08/18/2024 Discontinued Problems Active Problems Problem ClassificationProblemDateDocumented DateEpisodic/ChronicMalaise and fatigue (1 source)Other fatigue; Translations: [OTHER FATIGUE]Onset: 16-67-3676Lpukwknv Other and unspecified benign neoplasm (2 sources)Melanocytic nevus of trunk; Translations: [Melanocytic nevi of trunk] 18-99-0064PtnfxmwnFugwr and unspecified benign neoplasm (2 sources)Melanocytic nevus of left lower limb; Translations: [Melanocytic nevi of left lower limb, includinghip]19-43-6163CburfcyzBdtux and unspecified benign neoplasm (2 sources)Dermatofibroma; Translations: [Other benign neoplasm of skin, unspecified]28-29-9483WyvedpkrVmrww upper respiratory disease (20 sources)Allergic disposition; Translations: [Other allergic rhinitis]Onset: 754184-58-5960RxyjmchUgnchah (4 sources)Syncope and collapse; Translations: [SYNCOPE AND COLLAPSE]Onset: 58-66-1447KybscvofDrpmwdi disorders (20 sources)Nontoxic multinodular goiter; Translations: [Multinodular goiter] Onset: 54-37-1075Fnjtiuf Past or Other Problems Problem ClassificationProblemDateDocumented DateEpisodic/ChronicNeoplasms of unspecified nature or uncertain behavior (9 sources)Neoplastic disease of uncertain behavior; Translations: [Neoplasm of uncertain behavior, unspecified]Onset: 304667-36-4679TgmuhiraGpqzg upper respiratory infections (20 sources)Acute upper respiratory infection; Translations: [Acute upper respiratory infection, unspecified]Onset: 08-27-2023 Resolved: 178149-37-5482RakbmuheMfwajgahgug; intervertebral disc disorders; other back problems (20 sources)Low back pain; Translations: [Lumbar back pain]Onset: 08-18-2024 84-86-1715Slphsjbl Results Test NameValueInterpretationReference RangeFacilityUS BIOPSY THYROIDon 30-08-0025[place] [address] Ultrasound Report Signed Patient: ROSARIO CHURCHILL MR#: [id number] : 1990 Acct:[id number] Age/Sex: 34 / F ADM Date: 09/17/24 Loc: US Attending Dr: Saniya Johnson M.D. Ordering Physician: Saniya Johnson M.D. Date of Service: 09/17/24 Procedure(s): US biopsy thyroid Accession Number(s): [id number] cc: Idania Braun PATHOLOGY LABORATORY AIDE; Saniya Johnson M.D. The [address] [address] Patient Name: ROSARIO CHURCHILL MRN: [id number] date: 1990 Sex: F Assigned Patient Location: US Current Patient Location: US Accession/Order Number: [id number] Exam Date: 09/17/2024 13:45 Report Date: 09/17/2024 [...] Signed By: 09/17/24 1440 DD/ 1437 TD/TT: Academic Assistant:TBHRadiology, Radiologist, MD - 09/17/2024 [place] [address] Ultrasound Report Signed Patient: ROSARIO CHURCHILL MR#: [id number] : 1990 Acct:[id number] Age/Sex: 34 / F ADM Date: 09/17/24 Loc: US Attending Dr: Saniya Johnson M.D. Ordering Physician: Saniya Johnson M.D. Date of Service: 09/17/24 Procedure(s): US biopsy thyroid Accession Number(s): [id number] cc: Idania Braun PATHOLOGY LABORATORY AIDE; Saniya Johnson M.D. [address] [address] Patient Name: ROSARIO CHURCHILL MRN: [id number] date: 1990 Sex: F Assigned Patient Location: US Current Patient Location: US Accession/Order Number: [id number] Exam Date: 09/17/2024 13:45 Report Date: 09/17/2024 [...] Signed By: 09/17/24 1440 DD/ 1437 TD/TT: Academic Assistant: WENCESLAO HealthcareRadiology Study observation (narrative)NOM HealthcareUS BIOPSY THYROIDOrdered By: Radiologist Radiology on 15-64-6348[facility] Work Phone: IGP,APTIMA HPV,AGE GDLNon 13-42-0219TOI GDLN ACOG TESTINGNote.[facility] HealthcareComment on above:TESTS RESULT FLAG UNITS REF RANGE LAB Clinician Provided Cytology Information Source.............Cervix;Endocervix No. of containers..01 ThinPrep Vial Age Purnima TARIQ Julieta... 3065 01 FLAG LEGEND: L-Low Normal,H-High Normal,LL-Alert Low,HH-Alert High <-Panic Low,>-Panic High,A-Abnormal,AA-Critical Abnormal Performed at: 01 =[address] [address] Gladys Hudson MD, HPV APTIMANegativeNegativeNOMS HealthcareComment on above:This nucleic acid amplification test detects fourteen high- risk HPV types (16,18,31,33,35,39,45,51,52,56,58,59,66,68) without differentiation. Performed at: =[address] [id number] Manager Mass: Gladys Hudson MD, Phone: [phone] Performed at: [address] [id number] Manager Mass: Gladys Hudson MD, Phone: [phone] IGP, APTIMA HPV, RFX 16/18,45Note.NOMS HealthcareComment on above:TESTS RESULT FLAG UNITS REF RANGE LAB DIAGNOSIS: 02 NEGATIVE FOR INTRAEPITHELIAL LESION OR MALIGNANCY. Specimen adequacy: 02 Satisfactory for evaluation. No endocervical component is identified. Performed by: 02 Carlene Connor, Property Developer (ASCP) . 02 Note: Note 02 The [...] High,A-Abnormal,AA-Critical Abnormal Performed at: 02 [facility] [address] [address] Gladys Hudson MD, BRUSH-SPATULA CERVIX ENDOCERVIX CLINISYNCNOMS HealthcareUS Thyroid glandon 98-97-5338[place]ig, [place] [address] Ultrasound Report Signed Patient: ROSARIO CHURCHILL MR#: [id number] : 1990 Acct:[id number] Age/Sex: 34 / F ADM Date: 08/11/24 Loc: US Attending Dr: Saniya Johnson M.D. Ordering Physician: Saniya Johnson M.D. Date of Service: 08/11/24 Procedure(s): US thyroid Accession Number(s): [id number] cc: Idanai Braun PATHOLOGY LABORATORY AIDE; Saniya Johnson M.D. [address] [address] Patient Name: ROSARIO CHURCHILL MRN: [id number] date: 1990 Sex: F Assigned Patient Location: US Current Patient Location: Accession/Order Number: [id number] Exam Date: 08/11/2024 16:26 Report Date: 08/12/2024 [...] 4 nodule. Consider fine-needle aspiration TI-RADS: The [employer] TI-RADS committee's white paper recommendations for thyroid lesions classified as TR4 (moderately suspicious) are listed below: > 1.0 cm. Follow-up ultrasound in 1, 2, 3, and 5 years. > 1.5 cm. FNA. J. Am Cornelius Radiol 2017;14:587-595. Electronically authenticated by: DREW REAL Date: 08/12/2024 08:13 Dictated By: Drew Real M.D. Signed By: 08/12/24815 DD/ 2 TD/TT: Academic Assistant:REBECCAHRadiology, Radiologist, - 08/12/[address] [address] Ultrasound Report Signed Patient: ROSARIO CHURCHILL MR#: [id number] : 1990 Acct:[id number] Age/Sex: 34 / F ADM Date: 08/11/24 Loc: US Attending Dr: Saniya Johnson M.D. Ordering Physician: Saniya Johnson M.D. Date of Service: 08/11/24 Procedure(s): US thyroid Accession Number(s): [id number] cc: Idania Braun NP; Saniya Johnson M.D. [place] [id number] Patient Name: ROSARIO CHURCHILL MRN: [id number] date: 1990 Sex: F Assigned Patient Location: US Current Patient Location: Accession/Order Number: [id number] Exam Date: 08/11/2024 16:26 Report Date: 08/12/2024 [...] 4 nodule. Consider fine-needle aspiration TI-RADS: The [employer] TI-RADS committee's white paper recommendations for thyroid lesions classified as TR4 (moderately suspicious) are listed below: > 1.0 cm. Follow-up ultrasound in 1, 2, 3, and 5 years. > 1.5 cm. FNA. J. Am Cornelius Radiol 2017;14:587-595. Electronically authenticated by: DREW REAL Date: 08/12/2024 08:13 Dictated By: Drew Real M.D. Signed By: 08/12/24815 DD/ 2 TD/TT: Academic Assistant: WENCESLAO HealthcareRadiology Study observation (narrative)WENCESLAO AguirreUS Thyroid glandOrdered By: Radiologist Radiology on 59-50-5886SRZDHermann Area District Hospital Work Phone: cytology Cervical or vaginal smear or scraping studyon 27-56-0023BDUVHermann Area District HospitalCBC AUTO DIFFon 87-12-5526TQDQ #0.0 103/ulNormal0.0-0.1 [facility] HospitalComment on above:Performed By: #### CBC #### [facility] [address] [address] [address] Caden AbdiBasophils/100 WBC (Bld)0.5 %Normal0.2-2.0[facility] Comment on above:Performed By: #### CBC #### [facility] [address] [address] [address] Caden Jeter #0.2 103/ulNormal0.0-0.7The [facility] HospitalComment on above: Performed By: #### CBC #### [facility] [address] [address] [address] Caden Paredesosinophils/100 WBC (Bld)2.7 %Normal0.9-7.0[facility] Comment on above:Performed By: #### CBC #### [facility] [address] [address] [address] Caden Paredesrythrocyte distribution width (RBC) [Ratio]12.3 %Dlrfhq48.0-15.0 [facility] HospitalComment on above:Performed By: #### CBC #### [facility] [address] [address] [address] Caden AbdiHematocrit (Bld) [Volume fraction]35.0 %Critically low36.0-48.0 [facility] HospitalComment on above:Performed By: #### CBC #### [facility] [address] [address] [address] Caden AbdiHemoglobin (Bld) [Mass/Vol]11.8 g/dLCritically low12.0-16.0The [facility] HospitalComment on above:Performed By: #### CBC #### [facility] [address] [place] [address] Dr. Caden Pruett #0.01 10e3/ulNormal0.00-0.03The [facility] HospitalComment on above:Performed By: #### CBC #### [facility] [address] [place] [address] Dr. Caden Pruett %0.2 %Normal0.0-0.5The [facility] HospitalComment on above: Performed By: #### CBC #### [facility] [address] [place] [address] Dr. Caden Lynch #2.2 103/ulNormal1.2-3.8The [facility] HospitalComment on above:Performed By: #### CBC #### [facility] [address] [place] [address] Dr. Caden Lunahocytes/100 WBC (Bld)38.4 %Xhldtj27.5-60.0The [facility] HospitalComment on above:Performed By: #### CBC #### [facility] [address] [place] [address] Dr. Caden HaynesUAL DIFF REQNONormalThe [facility] HospitalComment on above: Performed By: #### CBC #### [facility] [address] [place] [address] Dr. Caden Garcia (RBC) [Entitic mass]30.3 muBbwbjf35.7-34.0The [facility] HospitalComment on above:Performed By: #### CBC #### [facility] [address] [place] [address] Dr. Caden Garcia (RBC) [Mass/Vol]33.7 g/gHOiekql59.9-35.2The [facility] HospitalComment on above:Performed By: #### CBC #### [facility] [address] [place] [address] Dr. Caden Garcia (RBC) [Entitic vol]90.0 mDVwrppl33.0-99.0The [facility] HospitalComment on above:Performed By: #### CBC #### [facility] [address] [place] [address] Dr. Caden Diaz #0.4 103/ulNormal0.3-0.8The [facility] HospitalComment on above:Performed By: #### CBC #### [facility] [address] [place] [address] Dr. Caden Orrocytes/100 WBC (Bld)6.2 %Normal1.7-12.0The [facility] Comment on above:Performed By: #### CBC #### [facility] [address] [place] [address] Dr. Caden Christopher #2.9 103/ulNormal1.4-6.5The [facility] HospitalComment on above:Performed By: #### CBC #### [facility] [address] [place] [address] Dr. Caden Hardyutrophils/100 WBC (Bld)52.0 %Rlxbpx56.0-75.0The [facility] HospitalComment on above:Performed By: #### CBC #### [facility] [address] [place] [address] Dr. Caden Shelton mean volume (Bld) [Entitic vol]9.4 fLCritically low 9.5-13.5The [facility] HospitalComment on above:Performed By: #### CBC #### [facility] [address] [place] [address] Dr. Caden JavierT240 103/ofSuiccd457-756Oho [facility] HospitalComment on above: Performed By: #### CBC #### [facility] [address] [place] [address] Dr. Caden AbdiRBC3.89 106/ulCritically low4.20-5.40The [facility] HospitalComment on above:Performed By: #### CBC #### [facility] [address] [place] [address] Dr. Caden AbdiWBC5.6 103/ulNormal4.0-11.0The [facility] HospitalComment on above: Performed By: #### CBC #### [facility] [address] [place] [address] Dr. Caden Baugh 14(COMP METB)on 19-11-1727Raswwcu [Mass/Vol]4.0 g/dLNormal 3.4-5.0The [facility] HospitalComment on above:Performed By: #### T4, CMP, TSH #### [facility] [address] [place] [address] Dr. Caden AbdiAlbumin/Globulin [Mass ratio]1.3 {ratio}NormalThe [facility] HospitalComment on above:Performed By: #### T4, CMP, TSH #### [facility] [address] [place] [address] Dr. Caden HeartP [Catalytic activity/Vol]38 U/LCritically omu22-195Hny [facility] HospitalComment on above:Performed By: #### T4, CMP, TSH #### [facility] [address] [place] [address] Dr. Caden Tran [Catalytic activity/Vol]21 U/YHkgxjw14-55Kpm [facility] HospitalComment on above:Performed By: #### T4, CMP, TSH #### [facility] [address] [place] [address] Dr. Caden Mora gap [Moles/Vol]8.6 mmol/LNormalThe [facility] HospitalComment on above:Performed By: #### T4, CMP, TSH #### [facility] [address] [place] [address] Dr. Caden AbdiAST [Catalytic activity/Vol]13 U/LCritically npk32-88Jty [facility] HospitalComment on above:Performed By: #### T4, CMP, TSH #### [facility] [address] [place] [address] Dr. Caden AbdiBilirubin [Mass/Vol]0.4 mg/dLNormal0.2-1.0The [facility] Comment on above:Performed By: #### T4, CMP, TSH #### [facility] [address] [address] [address] Caden AbdiCalcium [Mass/Vol]9.3 mg/dLNormal8.5-10.1The [facility] Comment on above:Performed By: #### T4, CMP, TSH #### [facility] [address] [address] [address] Caden AbdiChloride [Moles/Vol]104 mmol/GHftuyr09-941Nzy [facility] Comment on above:Performed By: #### T4, CMP, TSH #### [facility] [address] [address] [address] Caden AbdiCO2 [Moles/Vol]30.4 mmol/DXnszjd19.0-32.0The [facility] Comment on above:Performed By: #### T4, CMP, TSH #### [facility] [address] [address] [address] Caden AbdiCreatinine [Mass/Vol]0.71 mg/dLNormal0.55-1.02The [facility] HospitalComment on above:Performed By: #### T4, CMP, TSH #### [facility] [address] [address] [address] Caden ParedesGFR-AF PRYDEINIG>60Normal>=60The [facility] HospitalComment on above:Performed By: #### T4, CMP, TSH #### [facility] [address] [address] [address] Caden Bermudez-NON AF PRYDEINIG>60Normal>=60The [facility] HospitalComment on above:Performed By: #### T4, CMP, TSH #### [facility] [address] [address] [address] Caden AbdiGlobulin (S) [Mass/Vol]3.2 g/dLNormalThe [facility] HospitalComment on above:Performed By: #### T4, CMP, TSH #### [facility] [address] [address] [address] Caden AbdiGlucose [Mass/Vol]77 mg/zWNkhwgs85-131Pch [facility] Comment on above:Performed By: #### T4, CMP, TSH #### [facility] [address] [address] [address] Caden AbdiPotassium [Moles/Vol]4.0 mmol/LNormal3.5-5.1The [facility] Comment on above:Performed By: #### T4, CMP, TSH #### [facility] [address] [place] [address] Dr. Caden AbdiProtein [Mass/Vol]7.2 g/dLNormal6.4-8.2The [facility] Comment on above:Performed By: #### T4, CMP, TSH #### [facility] [address] [place] [address] Dr. Caden Kesslerdium [Moles/Vol]139 mmol/YScsjiz855-793Siv [facility] Comment on above:Performed By: #### T4, CMP, TSH #### [facility] [address] [place] [address] Dr. Caden AbdiUrea nitrogen [Mass/Vol]19.0 mg/dLCritically high7.0-18.0The [facility] HospitalComment on above:Performed By: #### T4, CMP, TSH #### [facility] [address] [place] [address] Dr. Caden Farah nitrogen/Creatinine [Mass ratio]26.8 mg/mgNormalThe [facility] HospitalComment on above:Performed By: #### T4, CMP, TSH #### [facility] [address] [place] [address] Dr. Caden Rios 94-20-0032V8 [Mass/Vol]6.80 ug/dLNormal4.80-13.90The [facility] HospitalComment on above:Performed By: #### T4, CMP, TSH #### [facility] [address] [place] [address] Dr. Caden Harp 49-98-4728SYZ6.303 uIU/mLNormal0.358-3.740The [facility] HospitalComment on above:Performed By: #### T4, CMP, TSH #### [facility] [address] [address] [address] Caden Davis THYROIDon 61-04-0739OB THYROIDEXAMINATION: US THYROID HISTORY: Non-toxic multinodular goiter [...] Electronically authenticated by: SETH BOLDEN Date: 2022-08-27 13:08[facility] HospitalCoding Summary.on 29-84-0635Gxsazf Summary.CODING DATE: 10/17/[address] [facility] STATUS: Home (Routine DC) PAYOR: Medical White ADMIT DX: REASON FOR VISIT DX: Z20.828 [...] result in slightly different terminology. Coded By: Myha Llanos CphT Date Saved: 10/17/2020 05:46 [facility] OhioARS-CoV-2, CARLOS on 93-04-0834OZYB CORONAVIRUS 2 RNA:PRTHR:PT:RESPIRATORY:ORD:PROBE.AMP.TARNot DetectedNot DetectedLake County Memorial Hospital - WestComment on above:Result Comment: This nucleic acid amplification test was developed and its performance characteristics determined by [employer] Nucleic acid amplification tests include PCR and [...] detected) result in this assay. Performed at: [facility] [address]Franc[facility] [place] [id number] MD Foley AnaghPerformed By: #### SARS-CoV-2, CARLOS #### [facility] [address], [place] [address]Jceqgrfiq Orderon 81-36-7307Xybbdxijw Order [id number]#1.00CD:127NormalLake County Memorial Hospital - West Vital Signs Date TimeVital SignValuePerforming OtogbtlvjPqehhfpe95-36-9537 13:27-0500Body .7 cmSaniya Johnson MD Work Phone: [facility] HospitalTuwaixvbld14-30-3430 13:27-0500Body mass index (BMI) [Ratio]24.33 kg/u4FcutksSaniya Johnson MD Work Phone: [phone] [place], [place] [address]Tnaswvsift28-58-3466 13:27-0500Body wjvcve80.58 kgSaniya Johnson MD Work Phone: [facility] HospitalTtdjezesrp04-23-6152 13:27-0500Diastolic blood qjiblroy93 mm[Hg]Saniya Johnson MD Work Phone: [facility] HospitalIfkgdokito35-06-8828 13:27-0500Systolic blood fvkqeyof284 mm[Hg]Saniya Johnson MD Work Phone: 1(549)[facility]-[address] [place], [place] [address]Zkrszfkwpw58-41-1431 13:23-0400Body gurxvg063.7 cmSaniya Johnson MD Work Phone: [facility] HospitalDarsxdqfen66-64-1881 13:23-0400Body mass index (BMI) [Ratio]24.33 kg/h2BlerjoSaniya Johnson MD Work Phone: [facility] HospitalDvchqvncya04-08-1011 13:23-0400Body ljzgry24.58 kgSaniya Johnson MD Work Phone: [phone] [place], [place] [address]Jvelopufny89-97-8313 13:23-0400Diastolic blood mm[Hg]Saniya Johnson MD Work Phone: [facility] HospitalIayyesgxlh61-81-6534 13:23-0400Systolic blood mbdikfgg087 mm[Hg]Saniya Johnson MD Work Phone: [facility] HospitalUzgffbrpfn30-10-8384 09:25-0400Body mass index (BMI) [Ratio]24.02 kg/m2Tamera VALENCIA Work Phone: [phone] [place], [place] [address]Npowsbbmky68-84-9608 09:25-0400Body whipna82.67 kgTamera VALENCIA Work Phone: [phone] [place], [place] [address]Jbrxaomhkp04-82-9364 09:25-0400Diastolic blood idfmbljx94 mm[Hg]Tamera VALENCIA Work Phone: [phone] [place], [place] [address]Btsrbtxzbz47-17-3538 09:25-0400Systolic blood prjrwbce577 mm[Hg]Tamera VALENCIA Work Phone: [phone] [place] [address]-09-2024 16:05-0400Body xgloqq164.7 Dontae Braun PATHOLOGY LABORATORY AIDE Work Phone: noCox Walnut LawnNrglbdwxmo52-70-8135 16:05-0400Body mass index (BMI) [Ratio]23.93 kg/m2Idania Braun PATHOLOGY LABORATORY AIDE Work Phone: noCox Walnut LawnTobhgmcjps20-00-5846 16:05-0400Body temperature 98.1 [degF]Idania Braun PATHOLOGY LABORATORY AIDE Work Phone: noCox Walnut LawnHjuzuwmche87-00-1676 16:05-0400Body aqjsay14.4 kg Idania Braun PATHOLOGY LABORATORY AIDE Work Phone: noCox Walnut LawnKiihsnhadn82-47-5018 16:05-0400Diastolic blood qebnxqgm31 mm[Hg]Idania Braun PATHOLOGY LABORATORY AIDE Work Phone: noCox Walnut LawnXyngerivlz22-94-4914 16:05-0400Heart rate62 /min Idania Braun PATHOLOGY LABORATORY AIDE Work Phone: noCox Walnut LawnFjgkuakosm97-72-5495 16:05-0400Respiratory rate18 /minIdania Braun PATHOLOGY LABORATORY AIDE Work Phone: noCox Walnut LawnSfyfrksljg94-78-5331 16:05-3921OjZ6% (BldA) [Mass fraction]99 %Idania Braun PATHOLOGY LABORATORY AIDE Work Phone: noCox Walnut LawnBvfrdoqhqp37-61-1275 16:05-0400Systolic blood cyequuxw061 mm[Hg]Idania Braun PATHOLOGY LABORATORY AIDE Work Phone: [facility] Encounters Encounter DateEncounter TypeCare ProviderFacilityStart: 04-06-2025 End: 44-21-3613CbokaoCpua Aichholz PATHOLOGY LABORATORY AIDE Work Phone: [facility] CWM FMComment on above:Lumbar back painStart: 03-09-2025 End: 43-96-5266Hngmkd outpatient new 30 minutesDor[facility]select [facility] ERIK Work Phone: [facility] SWS DERMComment on above:Melanocytic nevus of trunk (Primary Dx); Melanocytic nevus of left lower extremity; DermatofibromaStart: 03-09-2025 End: 76-21-6934vfvhzbkpjpPJOKO CHRISTIAN HOSPITALMNot AvailableStart: 03-09-2025 End: 77-36-9915Cfmaow flowsheetRylee [facility] PA Work Phone: [facility] SWS DERMStart: 03-09-2025 End: 08-87-7538Ewlxmd flowsheetRyWright Memorial Hospital PA Work Phone: [facility] SWS DERMStart: 03-08-2025 End: 30-45-7015Ahtqan Boy Barun PATHOLOGY LABORATORY AIDE Work Phone: [facility] CWM FMComment on above:Neoplasm of uncertain behavior (Primary Dx)Start: 10-12-2024 End: 03-57-0601Vlwval Dylan Johnson MD Work Phone: [facility] CI ENTStart: 10-12-2024 End: 71-89-3122Sdxcve Dylan Johnson MD Work Phone: [facility] CI ENTStart: 10-12-2024 End: 25-21-4421Saorut outpatient visit 15 minutesSaniya Johnson MD Work Phone: [facility] CI ENTComment on above:Thyroid nodule (CMS/HCC) (Primary Dx)Start: 10-12-2024 End: 14-50-5385dyifyammscZOCIJW H TIMMISNot AvailableStart: 09-17-2024 End: 17-18-4005Ypfxotjen Result EncounterGeneric External Data ProviderNOMS External Department UnsolicitedStart: 09-17-2024 End: 94-48-9220Brzjuiska Result EncounterGeneric External Data ProviderNOMS External Department UnsolicitedStart: 09-07-2024 End: 25-07-7544Xtwcij Dylan Johnson MD Work Phone: [facility] CI ENTStart: 09-07-2024 End: 93-64-7825Fnlnpa Dylan Johnson MD Work Phone: [facility] CI ENTStart: 09-07-2024 End: 21-48-0589Iilthg outpatient visit 25 minutesSaniya Johnson MD Work Phone: [facility] CI ENTComment on above:Multinodular goiter (CMS/HCC) (Primary Dx)Start: 09-07-2024 End: 48-29-8970nygswseuqeZSKVLV H TIMMISNot AvailableStart: 09-06-2024 End: 00-30-8238Hxpqgy flowsFaheem VALENCIA Work Phone: [facility] BCP OBStart: 09-06-2024 End: 75-23-4411Gwbcgr flowsFaheem VALENCIA Work Phone: [facility] BCP OBStart: 09-06-2024 End: 90-57-6391Xdxoybjxu Result EncounterGeneric External Data ProviderNOMS External Department UnsolicitedStart: 09-06-2024 End: 44-53-8321Sxriaes encounter procedureTamera VALENCIA Work Phone: [facility] Work Phone: Start: 09-06-2024 End: 22-02-8476Ajvpvvnd preventive med est patient 18-39 yrsTamera VALENCIA Work Phone: [facility] BCP OBComment on above:Well woman exam with routine gynecological examStart: 09-06-2024 End: 56-80-8304ktjnkgxyfuOJT MATTNot AvailableStart: 08-18-2024 End: 81-56-0097hojgdgluxbMCNY AICHHOLZNot AvailableStart: 08-18-2024 End: 62-26-8510Omzjiw outpatient visit 15 minutesLisa Kade PATHOLOGY LABORATORY AIDE Work Phone: [facility] CWM FMComment on above:Acute non-recurrent maxillary sinusitis (Primary Dx); Lumbar back painStart: 08-18-2024 End: 05-40-3199Gsvpki flowsheetLisa Aichholz PATHOLOGY LABORATORY AIDE Work Phone: [facility] CWM FMStart: 08-18-2024 End: 86-89-0985Zmscun Matheus Braun PATHOLOGY LABORATORY AIDE Work Phone: NOWI CWM FMStart: 08-12-2024 End: 55-94-8555Umwinzcnc Result EncounterGeneric External Data ProviderNOMS External Department UnsolicitedStart: 08-12-2024 End: 99-94-4090Iykyftzud Result EncounterGeneric External Data ProviderNOMS External Department UnsolicitedStart: 09-27-2022 End: 77-88-1825hrltmohzliVF HOWARD HOUSEFacility:T0Cocka: 08-26-2022 End: 61-17-1224zzmwrubnttYW SANIYA TIMMISFacility:H1 Procedures DateProcedureProcedure DetailPerforming ClinicianStart: 39-82-7296EB BIOPSY THYROIDGeneric External Data ProviderStart: 24-73-7975XIA,APTIMA HPV,AGE GDLNTamera VALENCIA Work Phone: Start: 53-19-7171Ukyssjetmfi observation [Identifier] in Cervix by Cyto stainSaniya Johnson MD Work Phone: Start: 58-03-9569Sv soft tissue head & neck real time imge docmGeneric External Data ProviderStart: 97-51-9060Fmuysaqgxge observation [Identifier] in Cervix by Cyto stainTamera VALENCIA Work Phone: Start: 38-55-6943Wvwt cerv/vag auto thin layer prep mnl screenTamera VALENCIA Work Phone: Plan of Treatment DateCare ActivityDetailAuthorStart: 15-26-3424Lbxnuzvgy for malignant neoplasm of cervixNOMS HealthcareStart: 19-00-2686Kfwtmewee for malignant neoplasm of cervixPap SmearNOMS HealthcareStart: 09-12-2025 End: 27-88-0686Uynjuvp encounter procedureNOMS BCP OBStart: 03-09-2025 End: 77-56-9351Noymsbi encounter qruuimqzm79/30/2025 3:10 PM EDT Office Visit [facility] DERM [address] [place] [address] Charles Elias PA [address] [place] [address] Neoplasm of uncertain behaviorNOMS SWS DERMComment on above:Neoplasm of uncertain behaviorStart: 10-12-2024 End: 17-60-2707Lqeprqq encounter uwmxpanml85/03/2024 1:30 PM EST Office Visit [facility] [address] [facility] [address] [place] [address] Saniya Johnson MD [address] [facility] [address] [place] [address] ArrivedNOMS CI ENTComment on above:ArrivedStart: 09-22-2024 End: 24-66-4449Rrnocmm encounter cltnumcbo82/13/2024 2:30 PM EST Procedure Visit [facility] BCP OB [address] [place] [address] Marty Armstrong, DO [address] [place] [address] [facility] BCP OBStart: 09-07-2024 End: 90-72-6578Uuphkrp encounter procedureNOMS CI ENTComment on above:Arrived Start: 09-06-2024 End: 59-45-5272Fwueaji encounter procedureNOMS BCP OBComment on above:Arrived Start: 33-59-3536Abebispqj vaccinationInfluenza Vaccine (#1)[facility] Healthcare Start: 14-43-0268Jssrykiib for malignant neoplasm of cervixNOMS HealthcareStart: 06-82-4852Pgahhuyto for malignant neoplasm of cervixPap SmearNOPR Healthcare Cytology Cervical or vaginal smear or scraping studyPap Smear Pathology and Cytology Routine Well woman exam with routine gynecological exam Ordered: [facility] Work Phone: comment on above:Ordered: 09/06/2024Human papilloma virus DNA [Presence] in Unspecified specimen by Probe with amplificationHPV DNA probe, amplified Microbiology Routine Well woman exam with routine gynecological exam Ordered: 09/06/2024[facility] HealthcareComment on above:Ordered: 09/06/2024 Immunizations Immunization DateImmunizationNotesCare UwqevscpRtlknzzo83-04-6419jrujgotfy virus vaccine, unspecified formulationSaniya Johnson MD Work Phone: noCox Walnut LawnYsmjjodyrx03-65-0898bzlvleyig, injectable, quadrivalent, preservative freeLisa Aichholz PATHOLOGY LABORATORY AIDE Work Phone: [facility] HospitalZcacpeooeq33-04-5880aezvebhod virus vaccine, unspecified formulationLisa Aichholz PATHOLOGY LABORATORY AIDE Work Phone: [facility] HospitalArxkfqbgob14-22-9741abdakxfkx, injectable, quadrivalent, preservative freeLisa Aichholz PATHOLOGY LABORATORY AIDE Work Phone: [facility] HospitalFlulhlxxhc56-26-3501qrtjkxdvn, injectable, quadrivalent, preservative freeLisa Aichholz PATHOLOGY LABORATORY AIDE Work Phone: [facility] Payers DatePayer CategoryPayerPolicy [id number] Health InsuranceMEDICAL MUTUAL [id number] [employer] [id number] 2020- [address] [place] [id number] [id number] 12.26.830.1.304097.3.57[id number] 2..840.1.092026.3.57[id number] 2.16.840.1.949265.3.579.2.922374-37-3225Zchyflu2800009 2..0.1.992895.3.57[id number] 2..840.1.986212.3.579.2.957943-88-0416Fwnnawr1485713 2.0.1.109846.3.57[id number] Social History DateTypeDetailFacilityStart: 57-77-1922Ukeiepj smoking status NHISNever smoked tobaccoNOMS HealthcareStart: 43-34-0012Qapimzc use and exposureSmokeless tobacco non-userNOMS HealthcareStart: 08-27-2023 End: 80-46-1129Rrzeabnht beverage intakeLifetime non-drinker (finding)[facility]OMS HealthcareStart: 08-27-2023 End: 77-05-0814Mzeysqb of Social functionNOMS HealthcareStart: 08-27-2023 End: 91-37-3148Jqsmnzt use panelNOMS HealthcareStart: 17-06-9971Zxnbxpz Comment Caffeine intake: 1-2 cups per dayNOMS HealthcareStart: 33-49-1384Tjd assigned at birthFemaleNOPR HealthcareStart: 60-68-4948Bnnlfn identityIdentifies as female gender (finding)[facility] HealthcareStart: 35-22-3833Szmfbl orientationHeterosexual (finding)[facility] HealthcareStart: 97-75-2223Zqk often do you need to have someone help you when you read instructions, pamphlets, or other written material from your doctor or pharmacy [SILS]NeverNOMS HealthcareDo you belong to any clubs or organizations such as anglican groups, unions, fraternal or athletic groups, or [...] time - these days [OSQ] Not at allNOPR Healthcare(I/We) worried whether (my/our) food would run out before (I/we) got money to buy more.Never trueNOCox Walnut Lawn Functional Status UxtnOtieafejycNlczwoLwwemxta50-71-8915Srvfo score [AUDIT-C]2 08/18/2024 11:48 AM EDT [place], GenericHermann Area District HospitalPksgcnbuqq27-62-0279Jiu often do you have a drink containing alcohol?Monthly or less 08/18/2024 11:48 AM EDT [employer], Generic Monthly or lessNOCox Walnut LawnZlinbwfxmv29-06-7217Tda many standard drinks containing alcohol do you have on a typical day?3 or 4 08/18/2024 11:48 AM EDT [place], Generic 3 or 4NOCox Walnut LawnNsiwpkdtla03-37-8719Rmg often do you have 6 or more drinks on 1 occasion?Never 08/18/2024 11:48 AM EDT [place], Generic NeverHermann Area District Hospital Clinical Notes 08-18-2024 to 03-09-2025 Note Date & TukuUvnaXzdjypsp54-44-6052 History of Present illness Narrative* ERIK Cortez [...] Next Visit: Recommend FBSE documented in this [facility]04-29-2025 History of Present illness Narrative* Idania Braun NP - 03/08/2025 8:13 AM EDTAssociated Problem(s): Neoplasm of uncertain behavior Here at appt with , asked about looking at skin lesion on abd area Approx 5-6mm, color variation, no ulcerations documented in this [facility]12-03-2024 History of Present illness Narrative* Saniya Johnson MD - 10/12/2024 1:30 PM EST Subjective Patient ID: Rosario Churchill is a 34 y.o. female who presents for Thyroid Nodule (Follow up FNA 09/20/24) FNA path shows a [place] 2 nodule. Family History Problem Relation Name [...] FNA. Resume annual US documented in this encounterHermann Area District HospitalKcijtiboaq40-67-1792 History of Present illness Narrative* Saniya Johnson MD - 09/07/2024 1:30 PM EDT Subjective Patient ID: Rosario Churchill is a 34 y.o. female who presents for Thyroid Nodule (Follow up [facility]trasound [facility] 08/12/24) US shows a 31t44z61hr TR4 nodule compared to 99i12t58vl a year ago Family History Problem Relation [...] for an US-guided FNA documented in this encounterHermann Area District HospitalHslfnmeoek90-80-0926 History of Present illness Narrative* ERIK Christensen [...] nursing note reviewed. Exam conducted with a patient relations manager present. Vitals: Estimated body mass index is [...] behalf of: ERIK Christensen documented in this encounterHermann Area District HospitalPaurtfuamd57-66-0664 History of Present illness Narrative* Idania Braun [...] ibuprofen 800 MG tablet documented in this encounterSH[facility] HealthcareEvaluation note* Diagnosis Acute non-recurrent maxillary sinusitis- Primary Lumbar back pain Lumbago documented in this encounter [facility] HealthcareEvaluation note* Diagnosis Acute non-recurrent maxillary sinusitis- Primary Lumbar back pain Lumbago Well woman exam with routine gynecological exam Routine gynecological examination documented in this encounter [facility] HealthcareEvaluation note* Diagnosis Acute non-recurrent maxillary sinusitis- [...] section and content) DATE CREATED AUTHOR 10/18/2020 [facility] DATE CREATED AUTHOR AUTHOR'S ORGANIZ ATION 10/02/2022 [facility] DATE CREATED AUTHOR AUTHOR'S ORGANIZ ATION 03/14/2025 [facility] EPIC Care Teams (unrecognized sec tion and content) Team MemberRelationshipSpecialtyStart DateEnd Date Jose Antonio Rodriguez MD [address] [place] [address] PCP - GeneralFamily Uvufugnx89/9/24 Idania Braun NP [address] [place] [address] Nurse PractitionerFamily Medicine08/06/24 Idania Barun NP [address] [place] [address] Nurse Pract[facility]erC[facility] Vcjmlvkd75/9/24Team MemberRelationshipSpecialtyStart DateEnd Date Jose Antonio Rodriguez MD [address] [place] [address] [facility] - [facility] Crrmjtpk25/9/24 Idania Braun NP [address] [place] [address] Nurse Pract[facility]erP[facility]08/06/24 Idania Braun NP [address] [place] [address] Nurse PractitionerP[facility]wn[facility]08/18/24Team MemberRelationshipSpecialtyStart DateEnd Date Jose Antonio Rodriguez MD [address] [place] [address] PCP - [facility]08/18/24 Idania Braun NP [address] [place] [address] Nurse PractitionerP[facility]08/06/24 Idania Braun NP [address] [place] [address] Nurse PractitionerP[facility]08/18/24Team MemberRelationshipSpecialtyStart DateEnd Date Jose Antonio Rodriguez MD [address] [place] [address] PCP - GeneralFamily Blwroipa76/9/24 Idania Braun NP [address] [place] [address] Nurse PractitionerOttumwa Regional Health Centerly Medicine08/06/24 Idania Braun NP [address] [place] [address] Nurse PractitionerC[facility] Dmjsatra61/9/24Team MemberRelationshipSpecialtyStart DateEnd Date Jose Antonio Rodriguez MD [address] [place] [address] PCP - [facility] Hunokgol49/9/24 Idania Braun NP [address] [place] [address] Nurse PractitionerP[facility]08/06/24 Idania Braun NP [address] [place] [address] Nurse PractitionerP[facility]08/18/24Team MemberRelationshipSpecialtyStart DateEnd Date Jose Antonio Rodriguez MD [address] [place] [address] [facility] - [facility] Ljphqjgq05/9/24 Idania Braun NP [address] [place] [address] Nurse PractitionerFamily Medicine08/06/24 Idania Braun NP [address] [place] [address] Nurse PractitionerP[facility]08/18/24Team MemberRelationshipSpecialtyStart DateEnd Date Jose Antonio Rodriguez MD [address] [place] [address] [facility] - [facility] Zazejbva03/9/24 Idania Braun NP [address] [place] [address] Nurse PractitionerP[facility]08/06/24 Idania Braun NP [address] [place] [address] Nurse PractitionerP[facility]08/18/24Team MemberRelationshipSpecialtyStart DateEnd Date Jose Antonio Rodriguez MD [address] [place] [address] PCP - [facility] Zxehmtiu10/9/24 Idania Braun NP [address] [place] [address] Nurse PractitionerP[facility]08/06/24 Idania Braun NP [address] [place] [address] Nurse PractitionerP[facility]08/18/24Team MemberRelationshipSpecialtyStart DateEnd Date Jose Antonio Rodriguez MD [address] [place] [address] [facility] - [facility] Qgsteafe11/9/24 Idania Braun NP [address] [place] [address] Nurse PractitionerP[facility]08/06/24 Idania Braun NP [address] [place] [address] Nurse PractitionerP[facility]08/18/24Team MemberRelationshipSpecialtyStart DateEnd Date Jose Antonio Rodriguez MD [address] [place] [address] PCP - [facility]08/18/24 Idania Braun NP [address] [place] [address] Nurse PractitionerP[facility]08/06/24 Idania Braun NP [address] [place] [address] Nurse PractitionerP[facility]08/18/24Team MemberRelationshipSpecialtyStart DateEnd Date Jose Antonio Rodriguez MD [address] [place] [address] PCP - [facility]08/18/24 Idania Braun NP [address] [place] [address] Nurse PractitionerFamily Medicine08/06/24 Idania Braun NP [address] [place] [address] Nurse Pract[facility]erC[facility] Rscyaind29/9/24Team MemberRelationshipSpecialtyStart DateEnd Date Jose Antonio Rodriguez MD [address] [place] [address] PCP - Generalmily Fswnnado99/9/24 Idania Braun NP [address] [place] [address] Nurse Pract[facility]erC[facility] Medicine08/06/24 Idania Braun NP [address] [place] [address] Nurse PractitionerP[facility]08/18/24Team MemberRelationshipSpecialtyStart DateEnd Date Jose Antonio Rodriguez MD PCP - Generalmily Nmawfcub44/9/24 Idania Braun NP [facility] Pract[facility]erC[facility] Medicine08/06/24 Idania Braun NP Nurse Pract[facility]erC[facility] Vvcedczy21/9/24Team MemberRelationshipSpecialtyStart DateEnd Date Jose Antonio Rodriguez MD PCP - GeneralFamily Cozdnmdz11/9/24 Idania Braun NP Nurse PractitionerFamily Medicine08/06/24 Idania Braun NP Nurse PractitionerFafairview hospital Sjefvglk08/9/24 Reason for Visit (unrecogniz ed section and content) ReasonCommentsWell Women VisitReasonCommentsThyroid NoduleFollow up Ultrasound [facility] 08/12/24ReasonCommentsThyroid NoduleFollow up FNA 09/20/24ReasonComments Suspicious Skin LesionSpecialtyDiagnoses / ProceduresReferred By ContactReferred To ContactDermatology Diagnoses Neoplasm of uncertain behavior Procedures DE OFFICE/OUTPATIENT NEW HIGH MDM 60 MINUTES Idania Braun NP [address] [place] [address] Phone: tel: fax: Charles Elias PA [address] [address] Phone: tel: fax: Referral IDStatusReasonStart DateExpiration DateVisits RequestedVisits [id number] Specialty Services Required 1ReasonOnset DateCommentsMed Gwndvd2604/06/2025 FOR RECORDS PERTAINING TO PATIENTS WHO ARE [...] BE BASED ON THE PRIMARY CLINICAL RECORDS. [facility]. provides no warranty or guarantee of the accuracy or completeness of information in this document.
[2025-10-18 15:09] LABS: Age Gdln ACOG Testing Note (.); IGP, Aptima HPV, rfx 16/18,45 Note (.)
== END 2025-10-13 19:16 | disposition home or self-care (01) ==
LOC: LAB 19:15
PROVIDERS: PCP Nurse Practitioner; Visit Provider Physician Assistant
DX: Z01.419 Encounter for gynecological examination (general) (routine) without abnormal findings (principal)
CPT/HCPCS: 87624; 88175